=== PATIENT | female | born 1995 | race Caucasian/White ===

== ENCOUNTER 2016-09-07 12:18 | Emergency (ER) | payer SELFPAY ==
--- NOTE | 2016-09-07 12:26 | ER Document Report ---
ED Medical Screen (RME) - General Stated Complaint: POSSIBLE UTI Notes: Frequency urgency 24 hours. I greeted and performed a rapid initial assessment of this patient. Comprehensive ED assessment and evaluation of the patient, analysis of test results and completion of the medical decision making process will be conducted by additional ED providers. TRAVEL OUTSIDE OF THE [place] IN LAST 30 DAYS: No - Related Data Allergies/Adverse Reactions: No Known Drug Allergies Allergy (Verified 06/16/16 15:39) Onion Allergy (Uncoded 06/16/16 15:39) Past Medical History Pulmonary Medical History: Reports: Hx Asthma Renal/ Medical History: Reports: Hx Pelvic Inflammatory Disease - Gonnorhea Psychiatric Medical History: Reports: Hx Depression Past Surgical History: Reports: Hx Appendectomy - Immunizations Hx Diphtheria, Pertussis, Tetanus Vaccination: Yes
[2016-09-07 13:07] LABS: AMORPHOUS SEDIMENT,URINE 1+ /HPF; APPEARANCE,URINE TURBID; BILIRUBIN,URINE SMALL (NEGATIVE); GLUCOSE, URINE NEGATIVE (NEGATIVE); KETONES,URINE TRACE mg/dL (NEGATIVE); LEUKOCYTE ESTERASE,URINE SMALL (NEGATIVE); NITRITE,URINE POSITIVE (NEGATIVE); PROTEIN,URINE 100 mg/dL (NEGATIVE); URINE SPECIFIC GRAVITY 1.028
[2016-09-07] MEDS ORDERED: CEPHALEXIN 500 MG CAPSULE PO ONE (13:25)
--- NOTE | 2016-09-07 13:26 | ER Document Report ---
HPI - HPI Patient complains to provider of: urinary symptoms Onset: Other - 6 days Onset/Duration: Persistent Quality of pain: Burning Pain Level: 5 Context: Patient complains of urinary urgency, frequency and dysuria for the past 6 days. Patient denies any fever, abdominal pain, or back pain. Patient is concerned she has a UTI. Associated Symptoms: Other - Urinary symptoms. denies: Fever Exacerbated by: Denies Relieved by: Denies Similar symptoms previously: Yes Recently seen / treated by doctor: No - ROS ROS below otherwise negative: Yes Systems Reviewed and Negative: Yes All other systems reviewed and negative - CONSTITUTIONAL Constitutional: DENIES: Fever, Chills - CARDIOVASCULAR Cardiovascular: DENIES: Chest pain - GASTROINTESTINAL Gastrointestinal: DENIES: Abdominal Pain, Nausea - URINARY Urinary: REPORTS: Dysuria, Urgency, Frequency - REPRODUCTIVE Reproductive: DENIES: : - MUSCULOSKELETAL Musculoskeletal: DENIES: Back Pain - DERM Skin Color: Normal Skin Problems: None Past Medical History - General Information source: Patient Last Menstrual Period: 08/25/2016 - Social History Smoking Status: Current Every Day Smoker Chew tobacco use (# tins/day): No Frequency of alcohol use: None Drug Abuse: None Family History: Reviewed & Not Pertinent Patient has suicidal ideation: No Patient has homicidal ideation: No Pulmonary Medical History: Reports: Hx Asthma Renal/ Medical History: Reports: Hx Pelvic Inflammatory Disease - Gonnorhea. Denies: Hx Peritoneal Dialysis Psychiatric Medical History: Reports: Hx Depression Past Surgical History: Reports: Hx Appendectomy - Immunizations Hx Diphtheria, Pertussis, Tetanus Vaccination: Yes Vertical Provider Document - CONSTITUTIONAL Agree With Documented VS: Yes Exam Limitations: No Limitations General Appearance: WD/WN, No Apparent Distress - INFECTION CONTROL TRAVEL OUTSIDE OF THE [place] IN LAST 30 DAYS: No - HEENT HEENT: Atraumatic, Normocephalic - NECK Neck: Normal Inspection, Supple - RESPIRATORY Respiratory: Breath Sounds Normal, No Respiratory Distress, Chest Non-Tender O2 Sat by Pulse Oximetry: 95 - CARDIOVASCULAR Cardiovascular: Regular Rate, Regular Rhythm, No Murmur - GI/ABDOMEN Gastrointestinal: Abdomen Soft, Abdomen Non-Tender - BACK Back: Normal Inspection. negative: CVA Tenderness-Right, CVA Tenderness-Left - MUSCULOSKELETAL/EXTREMETIES Musculoskeletal/Extremeties: MAEW - NEURO Level of Consciousness: Awake, Alert, Appropriate Motor/Sensory: No Motor Deficit - DERM Integumentary: Warm, Dry, No Rash Course - Vital Signs Vital signs: Temp Pulse Resp BP Pulse Ox 97.4 F 77 16 115/66 95 09/07/16 12:25 09/07/16 12:25 09/07/16 12:25 09/07/16 12:25 09/07/16 12:25 - Laboratory Laboratory results interpreted by me: 09/07/16 12:34 Urine Protein 100 H Urine Ketones TRACE H Urine Nitrite POSITIVE H Urine Bilirubin SMALL H Urine Urobilinogen 4.0 H Ur Leukocyte Esterase SMALL H 09/07/16 13:25 Labs- Entire Visit 09/07/16 12:34 Urine Color ADRIEL Urine Appearance TURBID Urine pH 7.0 Ur Specific [place] 1.028 Urine Protein 100 H Urine Glucose (UA) NEGATIVE Urine Ketones TRACE H Urine Blood NEGATIVE Urine Nitrite POSITIVE H Urine Bilirubin SMALL H Urine Urobilinogen 4.0 H Ur Leukocyte Esterase SMALL H Urine WBC (Auto) 43 Urine RBC (Auto) 4 Urine Bacteria (Auto) TRACE Squamous Epi Cells Auto 12 Amorphous Sediment Auto 1+ Urine Mucus (Auto) FEW Urine Ascorbic Acid NEGATIVE Discharge - Discharge Clinical Impression: UTI (urinary tract infection) Qualifiers: Urinary tract infection type: site unspecified Hematuria presence: without hematuria Qualified Code(s): N39.0 - Urinary tract infection, site not specified Condition: Stable Disposition: HOME, SELF-CARE Instructions: Urinary Tract Infection ([facility]), Urinary Anesthetic Agent ([facility]), Cephalexin ([facility]) Additional Instructions: Return immediately for any new or worsening symptoms Followup with your primary care provider, call tomorrow to make a followup appointment Prescriptions: Cephalexin Monohydrate [Keflex 500 mg Capsule] 500 mg PO Q6H 5 Days Phenazopyridine HCl [Pyridium 200 mg Tablet] 200 mg PO TID #15 tablet Forms: Return to Work Referrals: [facility] [Provider Group] - Follow up as needed
[2016-09-07 13:47] VITALS: BP 99/65
== END 2016-09-07 13:34 | disposition home or self-care (01) ==
LOC: ER 12:18
DX: N39.0 Urinary tract infection, site not specified (principal); R39.15 Urgency of urination; R35.0 Frequency of micturition; R30.0 Dysuria; F17.200 Nicotine dependence, unspecified, uncomplicated; J45.909 Unspecified asthma, uncomplicated; Z87.42 Personal history of other diseases of the female genital tract
CPT/HCPCS: 81001; 87086; 87186; 99283

== ENCOUNTER 2016-10-16 11:03 | Emergency (ER) | payer SELFPAY ==
--- NOTE | 2016-10-16 11:08 | ER Document Report ---
ED Medical Screen (RME) - General Stated Complaint: URINARY PROBLEM Notes: patient c/o urgency, odor, pyuria, frequency for 4 days. LMP: 09/14/16 Sexually active, uses condoms denies pelvic pain admits to vaginal discharge that is white and clumpy, with fishy odor I have greeted and performed a rapid initial assessment of this patient. A comprehensive ED assessment and evaluation of the patient, analysis of test results and completion of the medical decision making process will be conducted by additional ED providers. TRAVEL OUTSIDE OF THE [place] IN LAST 30 DAYS: No - Related Data Allergies/Adverse Reactions: No Known Drug Allergies Allergy (Verified 10/16/16 11:06) Onion Allergy (Uncoded 10/16/16 11:06) Past Medical History Pulmonary Medical History: Reports: Hx Asthma Renal/ Medical History: Reports: Hx Pelvic Inflammatory Disease - Gonnorhea. Denies: Hx Peritoneal Dialysis Psychiatric Medical History: Reports: Hx Depression Past Surgical History: Reports: Hx Appendectomy - Immunizations Hx Diphtheria, Pertussis, Tetanus Vaccination: Yes
[2016-10-16 12:12] LABS: APPEARANCE,URINE SLIGHTLY-CLOUDY; BILIRUBIN,URINE NEGATIVE (NEGATIVE); GLUCOSE, URINE NEGATIVE (NEGATIVE); KETONES,URINE NEGATIVE (NEGATIVE); LEUKOCYTE ESTERASE,URINE TRACE (NEGATIVE); NITRITE,URINE POSITIVE (NEGATIVE); PROTEIN,URINE NEGATIVE (NEGATIVE); URINE SPECIFIC GRAVITY 1.031
--- NOTE | 2016-10-16 12:30 | ER Document Report ---
ED GI/ - General Mode of Arrival: Ambulatory Information source: Patient TRAVEL OUTSIDE OF THE [place] IN LAST 30 DAYS: No - HPI Patient complains to provider of: Dysuria, Vaginal discharge, Other - Fishy vaginal odor Onset: Other - 4 days ago Location: Other - see above Associated symptoms: Other - see above - General Chief Complaint: Urinary Frequency Stated Complaint: URINARY PROBLEM Notes: 21 year old female with history of recurrent UTIs presents to the ED complaining of dysuria, urgency, and burning with urination that started 4 days ago. Patient is also complaining of a white vaginal discharge and a foul fishy vaginal odor. Patient reports that she usually get a yeast infection concurrently with UTI infections. Patient denies abdominal cramping or vaginal bleeding. Patient denies being on any medications. Patient additionally requests a work note. (XUAN VELARDE) - Related Data Allergies/Adverse Reactions: No Known Drug Allergies Allergy (Verified 10/16/16 11:06) Onion Allergy (Uncoded 10/16/16 11:06) Past Medical History - General Information source: Patient - Social History Smoking Status: Current Every Day Smoker Cigarette use (# per day): Yes - 1 cigarette per day Chew tobacco use (# tins/day): No Frequency of alcohol use: Occasional Drug Abuse: None Family History: Reviewed & Not Pertinent Patient has suicidal ideation: No Patient has homicidal ideation: No Pulmonary Medical History: Reports: Hx Asthma Renal/ Medical History: Reports: Hx Pelvic Inflammatory Disease - Gonnorhea. Denies: Hx Peritoneal Dialysis Psychiatric Medical History: Reports: Hx Depression Past Surgical History: Reports: Hx Appendectomy - Immunizations Hx Diphtheria, Pertussis, Tetanus Vaccination: Yes Review of Systems - Review of Systems Constitutional: No symptoms reported EENT: No symptoms reported Cardiovascular: No symptoms reported Respiratory: No symptoms reported Gastrointestinal: No symptoms reported. denies: Abdominal pain Genitourinary: See HPI, Burning, Dysuria, Urgency Female Genitourinary: See HPI, Vaginal discharge - white, Vaginal odor - "fishy ". denies: Vaginal bleeding Musculoskeletal: No symptoms reported Skin: No symptoms reported Hematologic/Lymphatic: No symptoms reported Neurological/Psychological: No symptoms reported -: Yes All other systems reviewed and negative Physical Exam - General General appearance: Alert In distress: None - HEENT Head: Normocephalic, Atraumatic Eyes: Normal Extraocular movements intact: Yes Pupils: PERRL - Respiratory Respiratory status: No respiratory distress Breath sounds: Normal - Cardiovascular Rhythm: Regular Heart sounds: Normal auscultation - Abdominal Inspection: Normal - Back Back: Normal - Extremities General upper extremity: Normal inspection, Normal ROM General lower extremity: Normal inspection, Normal ROM - Neurological Neuro grossly intact: Yes - Psychological Associated symptoms: Normal affect, Normal mood - Skin Skin Temperature: Warm Skin Moisture: Dry Skin Color: Normal - Vital signs Vitals: Temp Pulse Resp BP Pulse Ox 98.2 F 57 L 12 87/52 L 98 10/16/16 11:10 10/16/16 11:10 10/16/16 11:10 10/16/16 11:10 10/16/16 11:10 Discharge - Discharge Clinical Impression: Vaginal discharge UTI (urinary tract infection) Qualifiers: Urinary tract infection type: acute cystitis Hematuria presence: without hematuria Qualified Code(s): N30.00 - Acute cystitis without hematuria Additional Instructions: TAKE THE MEDICATION PRESCRIBED. DRINK PLENTY OF FLUIDS. A URINE TEST FOR GC AND CHLAMYDIA WAS DONE--IT WILL TAKE SEVERAL HOURS FOR THE RESULTS. YOU WILL BE CALLED IF THERE IS ANY ABNORMALITY. FOLLOW UP WITH YOUR DOCTOR IF NOT IMPROVING. Prescriptions: Clindamycin HCl 150 mg PO QID #28 capsule Forms: Return to Work Scribe Attestation: 10/16/16 12:41 I personally performed the services described in the documentation, reviewed and edited the documentation which was dictated to the scribe in my presence, and it accurately records my words and actions. (VAN RICKS) Scribe Documentation - Scribe Written by Xavi:: Xavi Rico, 10/16/2016 1245 acting as scribe for :: Pastor
[2016-10-16 13:37] VITALS: BP 124/68
[2016-10-16 14:23] LABS: CHLAM PCR NOT DETECTED (NOT DETECT)
== END 2016-10-16 13:05 | disposition home or self-care (01) ==
LOC: ER 11:03
DX: N30.00 Acute cystitis without hematuria (principal); N89.8 Other specified noninflammatory disorders of vagina; R35.0 Frequency of micturition; R39.15 Urgency of urination; R30.0 Dysuria; J45.909 Unspecified asthma, uncomplicated; F17.210 Nicotine dependence, cigarettes, uncomplicated; Z87.42 Personal history of other diseases of the female genital tract; Z91.018 Allergy to other foods
CPT/HCPCS: 81001; 81025; 87086; 87088; 87186; 87491; 87591; 99283

== ENCOUNTER 2016-12-01 16:09 | Emergency (ER) | payer MEDICAID ==
[2016-12-01 17:18] VITALS: BP 111/48
== END 2016-12-01 18:30 | disposition left against medical advice (07) ==
LOC: ER 16:09
DX: Z53.21 Procedure and treatment not carried out due to patient leaving prior to being seen by health care provider (principal)

== ENCOUNTER 2016-12-04 02:07 | Emergency (ER) | payer MEDICAID ==
[2016-12-04] MEDS ORDERED: METOCLOPRAMIDE HCL INJ/PF 10 MG/2 ML SDV IV ONE (03:01)
[2016-12-04] MEDS ORDERED: NORMAL SALINE 1000 ML 1,000 ML IV ONE (03:02)
--- NOTE | 2016-12-04 03:22 | ER Document Report ---
ED General - General Chief Complaint: Nausea/Vomiting Stated Complaint: VOMITING Notes: Patient is a 21-year-old female presents with complaints of vomiting. She is partially 5 weeks . She was seen at [facility] one week ago. She has some bleeding that time had an ultrasound which showed a IUP. She says the last few days she started vomiting. No associated abdominal pain. Some diarrhea. No blood or stool. No blood or emesis. No further vaginal bleeding. No discharge. No dysuria. No fevers. No other complaints at this time. TRAVEL OUTSIDE OF THE [place] IN LAST 30 DAYS: No - Related Data Allergies/Adverse Reactions: No Known Drug Allergies Allergy (Verified 10/16/16 11:06) Onion Allergy (Uncoded 10/16/16 11:06) Past Medical History - Social History Smoking Status: Never Smoker Frequency of alcohol use: None Drug Abuse: None Family History: Reviewed & Not Pertinent Patient has suicidal ideation: No Patient has homicidal ideation: No Pulmonary Medical History: Reports: Hx Asthma Renal/ Medical History: Reports: Hx Pelvic Inflammatory Disease - Gonnorhea. Denies: Hx Peritoneal Dialysis Psychiatric Medical History: Reports: Hx Depression Past Surgical History: Reports: Hx Appendectomy - Immunizations Hx Diphtheria, Pertussis, Tetanus Vaccination: Yes Review of Systems - Review of Systems Notes: My Normal Review Basic REVIEW OF SYSTEMS: CONSTITUTIONAL : Denies fever, chills, or sweats. Denies recent illness. EENT: Denies eye, ear, throat, or mouth pain or symptoms. Denies nasal or sinus congestion. CARDIOVASCULAR: Denies chest pain. RESPIRATORY: Denies cough, cold, or chest congestion. Denies shortness of breath, difficulty breathing, or wheezing. GASTROINTESTINAL: Denies abdominal pain. Vomiting. Denies constipation. Last BM: GENITOURINARY: Denies difficulty urinating, painful urination, burning, frequency, or blood in urine. FEMALE GENITOURINARY: Denies vaginal bleeding, abnormal or irregular periods. LMP: Currently . MUSCULOSKELETAL: Denies neck or back pain or joint pain or swelling. SKIN: Denies rash or skin lesions. HEMATOLOGIC : Denies easy bruising or bleeding. LYMPHATIC: Denies swollen, enlarged glands. NEUROLOGICAL: Denies altered mental status or loss of consciousness. ALL OTHER SYSTEMS REVIEWED AND NEGATIVE. Physical Exam - Vital signs Vitals: Temp Pulse Resp BP Pulse Ox 98.1 F 75 16 122/65 99 12/04/16 02:12 12/04/16 02:12 12/04/16 02:12 12/04/16 02:12 12/04/16 02:12 - Notes Notes: General Appearance: Well nourished, alert, cooperative, no acute distress, no obvious discomfort. Vitals: reviewed, See vital signs table. Head: no swelling or tenderness to the head Eyes: PERRL, EOMI, Conjuctiva clear Mouth: No decreasd moisture Throat: No tonsillar inflammation, No airway obstruction, No lymphadenopathy Lungs: No wheezing, No rales, No rhonci, No accessory muscle use, good air exchange bilaterally. Heart: Normal rate, Regular rythm, No murmur, no rub Abdomen: Normal BS, soft, No rigidity, No abdominal tenderness, No guarding, no rebound, no abdominal masses, no organomegaly Extremities: strength 5/5 in all extremities, good pulses in all extremities, no swelling or tenderness in the extremities, no edema. Skin: warm, dry, appropriate color, no rash Neuro: speech clear, oriented x 3, normal affect, responds appropriately to questions. Course - Vital Signs Vital signs: Temp Pulse Resp BP Pulse Ox 98.1 F 75 16 122/65 99 12/04/16 02:12 12/04/16 02:12 12/04/16 02:12 12/04/16 02:12 12/04/16 02:12 - Laboratory Result Diagrams: 12/04/16 03:29 Laboratory results interpreted by me: 12/04/16 04:49 Urine Ketones 20 H Urine Ascorbic Acid 40 H - Transfer of Care Notes: 12/04/16 06:22 Patient says her nausea is improved with Phenergan. I did write a prescription for Phenergan. I encourage her to follow closely with her [employer] physician. Encourage return to ER she has recurrent vomiting or feels unwell. Patient has been drinking liquids without any difficulty and no further vomiting. Dictation of this chart was performed using voice recognition software; therefore, there may be some unintended grammatical errors. Discharge - Discharge Clinical Impression: Vomiting Qualifiers: Vomiting type: unspecified Vomiting Intractability: non-intractable Nausea presence: unspecified Qualified Code(s): R11.10 - Vomiting, unspecified Qualifiers: Weeks of gestation: unspecified Qualified Code(s): Z33.1 - state, incidental Condition: Good Disposition: HOME, SELF-CARE Additional Instructions: Please eat a bland diet. Please take vitamins. Please take the nausea medication as prescribed. The nausea medication can make you drowsy so do not drive if you feel drowsy or sleepy after taking the medication. Please return to the ER immediately if you have intractable vomiting, abdominal pain, fevers, or vaginal bleeding. Please follow up with an [employer] physician in 3-4 days. Prescriptions: Promethazine HCl [Phenergan 25 mg Tablet] 1 tab PO Q6H PRN #20 tablet PRN Reason:
[2016-12-04 03:52] LABS: ANION GAP 15 (5-19); BLOOD UREA NITROGEN 13 mg/dL (7-20); CALCIUM 9.9 mg/dL (8.4-10.2); CARBON DIOXIDE 24 mmol/L (22-30); CHLORIDE 103 mmol/L (98-107); CREATININE RESULT 0.63 mg/dL (0.52-1.25); GLUCOSE 87 mg/dL (75-110); POTASSIUM 4.1 mmol/L (3.6-5.0); SODIUM 142.1 mmol/L (137-145)
[2016-12-04 05:21] LABS: APPEARANCE,URINE SLIGHTLY-CLOUDY; BILIRUBIN,URINE NEGATIVE (NEGATIVE); GLUCOSE, URINE NEGATIVE (NEGATIVE); KETONES,URINE 20 mg/dL (NEGATIVE); LEUKOCYTE ESTERASE,URINE NEGATIVE (NEGATIVE); NITRITE,URINE NEGATIVE (NEGATIVE); PROTEIN,URINE NEGATIVE (NEGATIVE); UROBILINOGEN,URINE NEGATIVE mg/dL (<2.0)
[2016-12-04] MEDS ORDERED: PROMETHAZINE HCL 25 MG TABLET PO ONE (05:36)
[2016-12-04 06:26] VITALS: BP 105/57
== END 2016-12-04 06:26 | disposition home or self-care (01) ==
LOC: ER 02:07
DX: R11.2 Nausea with vomiting, unspecified (principal); Z3A.01 Less than 8 weeks gestation of pregnancy
CPT/HCPCS: 99283; 96361; 96374; 36415; 80048; 81001; J2765; J3490; J7030

== ENCOUNTER 2016-12-09 19:17 | Emergency (ER) | payer MEDICAID | END 2016-12-09 20:30 | disposition left against medical advice (07) | LOC: ER 19:17 | DX: Z53.21 Procedure and treatment not carried out due to patient leaving prior to being seen by health care provider (principal) ==

== ENCOUNTER 2017-01-18 06:21 | Emergency (ER) | payer MEDICAID ==
[2017-01-18 07:08] VITALS: BP 121/98
--- NOTE | 2017-01-18 08:23 | ER Document Report ---
HPI - HPI Pain Level: 5 Context: Patient comes to the office c/o sore throat, inflamed tonsils, white exudates, on/off fever x2 days. Pt states that she does have discomfort to swallow(due to pain), but no obstruction. She is still eating/drinking with no problems. 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 She was seen by an urgent care yesterday with a negative rapid strep. She is currently on macrobid for a UTI. Pt does note pain in her left lower jaw as well. She has not noticed any facial swelling. Immunizations utd per pt. Denies any current fever, ear pain , nasal michelle/discharge, cough, sob, dyspnea, cp, palp, abd pain, n/v/d, hematuria, dysuria, vaginal discharge, or rash. - ROS Notes: REVIEW OF SYSTEMS: CONSTITUTIONAL : see hpi EENT: see hpi CARDIOVASCULAR: Denies chest pain. Denies palpitations or racing or irregular heart beat. Denies ankle edema. RESPIRATORY: Denies cough, cold, or chest congestion. Denies shortness of breath, difficulty breathing, or wheezing. GASTROINTESTINAL: Denies abdominal pain or distention. Denies nausea, vomiting , or diarrhea. Denies blood in vomitus, stools, or per rectum. Denies black, tarry stools. Denies constipation. GENITOURINARY: Denies difficulty urinating, painful urination, burning, frequency, blood in urine, or discharge. FEMALE GENITOURINARY: Denies vaginal bleeding, heavy or abnormal periods, irregular periods. Denies vaginal discharge or odor. MUSCULOSKELETAL: Denies back or neck pain or stiffness. Denies joint pain or swelling. SKIN: Denies rash, lesions or sores. HEMATOLOGIC : Denies easy bruising or bleeding. NEUROLOGICAL: Denies confusion or altered mental status. Denies passing out or loss of consciousness. Denies dizziness or lightheadedness. Denies headache. Denies weakness or paralysis or loss of use of either side. Denies problems with gait or speech. Denies sensory loss, numbness, or tingling. Denies seizures. ALL OTHER SYSTEMS REVIEWED AND NEGATIVE. Dictation was performed using [employer] recognition software Systems Reviewed and Negative: Yes All other systems reviewed and negative - REPRODUCTIVE Reproductive: DENIES: : - DERM Skin Color: Normal Past Medical History - Social History Smoking Status: Never Smoker Family History: Reviewed & Not Pertinent Patient has suicidal ideation: No Patient has homicidal ideation: No Pulmonary Medical History: Reports: Hx Asthma Renal/ Medical History: Reports: Hx Pelvic Inflammatory Disease - Gonnorhea. Denies: Hx Peritoneal Dialysis Psychiatric Medical History: Reports: Hx Depression Past Surgical History: Reports: Hx Appendectomy - Immunizations Hx Diphtheria, Pertussis, Tetanus Vaccination: Yes Vertical Provider Document - CONSTITUTIONAL Notes: PHYSICAL EXAMINATION: GENERAL: Well-appearing, well-nourished and in no acute distress. No tri-pod position HEAD: Atraumatic, normocephalic. EYES: Pupils equal round and reactive to light, extraocular movements intact, sclera anicteric, conjunctiva are normal. ENT: EAC clear b/l. TM's intact b/l without erythema, fluid, or perforation. Nares patent and without discharge. Throat: + tonsilar hypertrophy L>R 1+ without palatine shift. Uvula midline. + erythema with exudates b/l. No drooling. No facial/neck swelling. No dental pain or poor dentition noted. NECK: Normal range of motion, supple without lymphadenopathy or induration/ tenderness. LUNGS: Breath sounds clear to auscultation bilaterally and equal. No wheezes rales or rhonchi. HEART: Regular rate and rhythm without murmurs, rubs, gallops. ABDOMEN: Soft, nontender, nondistended abdomen. No guarding, no rebound. No masses appreciated. Normal bowel sounds present. No CVA tenderness bilaterally. No hepatosplenomegaly. Musculoskeletal: FROM to passive/active. Strength 5+/5. Extremities: No cyanosis, clubbing, or edema b/l. Peripheral pulses 2+. Capillary refill less than 3 seconds. NEUROLOGICAL: Cranial nerves grossly intact. Normal speech, normal gait. Normal sensory, motor exams PSYCH: Normal mood, normal affect. SKIN: Warm, Dry, normal turgor, no rashes or lesions noted. - INFECTION CONTROL TRAVEL OUTSIDE OF THE [place] IN LAST 30 DAYS: No - RESPIRATORY O2 Sat by Pulse Oximetry: 98 Course - Re-evaluation Re-evalutation: patient is an afebrile, well-hydrated, 21yo female in no acute distress who presents with tonsilitis, suspect strep based on my H&P. Rapid negative, but I am going to cover her clinically. With her higher sexual behavior, I am going to cover her with 1g of rocephin and send her home with Doxy 100mg PO BID x10 days. I will have her stop the macrobid. Pt in agreement. Recheck in 2-3 days with PCM. 01/18/17 08:25 - Vital Signs Vital signs: Temp Pulse Resp BP Pulse Ox 99.1 F 97 20 121/98 H 98 01/18/17 06:50 01/18/17 06:50 01/18/17 06:50 01/18/17 06:50 01/18/17 06:50 Discharge - Discharge Clinical Impression: Acute bacterial tonsillitis Condition: Stable Disposition: HOME, SELF-CARE Instructions: Sore Throat ([facility]), Tonsillitis ([facility]) Additional Instructions: Maintain adequate fluid intake Take meds as directed tylenol/ibuprofen as needed New toothbrush tomorrow evening over the counter cold medication as needed for symptoms F/u: with your PCM in 2-3 days for a recheck Return to the ED with any fever, worsening pain, chest pain, neck pain, shortness of breath, trouble swallowing/breathing, abdominal pain, n/v/d, or worsening symptoms otherwise. Forms: Elevated Blood Pressure, Return to Work
[2017-01-18] MEDS ORDERED: CEFTRIAXONE INJ 1000 MG VIAL IM ONE (08:28)
[2017-01-18] MEDS ORDERED: NYSTATIN/DEXAMETH/DIPHEN SUSP 120 ML PO ONE (08:32)
[2017-01-18] MEDS ORDERED: LIDOCAINE 1% INJ-PF (10 MG/ML) 30 ML SDV INJ ONE (08:43)
== END 2017-01-18 08:53 | disposition home or self-care (01) ==
LOC: ER 06:21
DX: J03.80 Acute tonsillitis due to other specified organisms (principal); B96.89 Other specified bacterial agents as the cause of diseases classified elsewhere; N39.0 Urinary tract infection, site not specified; R68.84 Jaw pain; J45.909 Unspecified asthma, uncomplicated
CPT/HCPCS: 99283; 96372; 87070; 87880; 87077; J3490 ×2; J0696

== ENCOUNTER 2017-02-15 09:53 | Emergency (ER) | payer MEDICAID ==
[2017-02-15 09:58] VITALS: BP 116/64
--- NOTE | 2017-02-15 10:13 | ER Document Report ---
ED General - General Chief Complaint: Vaginal Itching Stated Complaint: VAGINAL DISCHARGE Time Seen by Provider: 02/15/17 10:04 Mode of Arrival: Ambulatory Information source: Patient Notes: 21-year-old female history of bacterial vaginosis yeast infections presents with complaints of foul-smelling discharge consistent with her previous BV, patient denies any fevers or chills nausea vomiting or diarrhea. Patient denies any concerns for sexually transmitted diseases. Patient is sexually active. TRAVEL OUTSIDE OF THE [place] IN LAST 30 DAYS: No - HPI Onset: Last week Onset/Duration: Persistent Quality of pain: No pain Severity: Mild Pain Level: Denies Associated symptoms: Other Exacerbated by: Denies Relieved by: Denies Similar symptoms previously: Yes Recently seen / treated by doctor: Yes - Related Data Allergies/Adverse Reactions: No Known Drug Allergies Allergy (Verified 10/16/16 11:06) Onion Allergy (Uncoded 10/16/16 11:06) Past Medical History - Social History Smoking Status: Current Every Day Smoker Cigarette use (# per day): Yes Chew tobacco use (# tins/day): No Smoking Education Provided: No Family History: Reviewed & Not Pertinent Patient has suicidal ideation: No Patient has homicidal ideation: No Pulmonary Medical History: Reports: Hx Asthma Renal/ Medical History: Reports: Hx Pelvic Inflammatory Disease - Gonnorhea. Denies: Hx Peritoneal Dialysis Psychiatric Medical History: Reports: Hx Depression Past Surgical History: Reports: Hx Appendectomy - Immunizations Hx Diphtheria, Pertussis, Tetanus Vaccination: Yes Review of Systems - Review of Systems Notes: REVIEW OF SYSTEMS: CONSTITUTIONAL : Denies fever, chills, or sweats. Denies recent illness. EENT: Denies eye, ear, throat, or mouth pain or symptoms. Denies nasal or sinus congestion or discharge. Denies throat, tongue, or mouth swelling or difficulty swallowing. CARDIOVASCULAR: Denies chest pain. Denies palpitations or racing or irregular heart beat. Denies ankle edema. RESPIRATORY: Denies cough, cold, or chest congestion. Denies shortness of breath, difficulty breathing, or wheezing. GASTROINTESTINAL: Denies abdominal pain or distention. Denies nausea, vomiting , or diarrhea. Denies blood in vomitus, stools, or per rectum. Denies black, tarry stools. Denies constipation. GENITOURINARY: Denies difficulty urinating, painful urination, burning, frequency, blood in urine, or discharge. FEMALE GENITOURINARY: Admits to itchy vaginal discharge MUSCULOSKELETAL: Denies back or neck pain or stiffness. Denies joint pain or swelling. SKIN: Denies rash, lesions or sores. HEMATOLOGIC : Denies easy bruising or bleeding. LYMPHATIC: Denies swollen, enlarged glands. NEUROLOGICAL: Denies confusion or altered mental status. Denies passing out or loss of consciousness. Denies dizziness or lightheadedness. Denies headache. Denies weakness or paralysis or loss of use of either side. Denies problems with gait or speech. Denies sensory loss, numbness, or tingling. Denies seizures. PSYCHIATRIC: Denies anxiety or stress. Denies depression, suicidal ideation, or homicidal ideation. ALL OTHER SYSTEMS REVIEWED AND NEGATIVE. PHYSICAL EXAMINATION: GENERAL: Well-appearing, well-nourished and in no acute distress. HEAD: Atraumatic, normocephalic. EYES: Pupils equal round and reactive to light, extraocular movements intact, conjunctiva are normal. ENT: Nares patent, oropharynx clear without exudates. Moist mucous membranes. NECK: Normal range of motion, supple without lymphadenopathy LUNGS: Breath sounds clear to auscultation bilaterally and equal. No wheezes rales or rhonchi. HEART: Regular rate and rhythm without murmurs ABDOMEN: Soft, nontender, nondistended abdomen. No guarding, no rebound. No masses appreciated. Female : deferred Musculoskeletal: Normal range of motion, no pitting or edema. No cyanosis. NEUROLOGICAL: Cranial nerves grossly intact. Normal speech, normal gait. Normal sensory, motor exams PSYCH: Normal mood, normal affect. SKIN: Warm, Dry, normal turgor, no rashes or lesions noted. Dictation was performed using [employer] voice recognition software Physical Exam - Vital signs Vitals: Temp Pulse Resp BP Pulse Ox 97.9 F 82 20 116/64 99 02/15/17 09:55 02/15/17 09:55 02/15/17 09:55 02/15/17 09:55 02/15/17 09:55 Course - Re-evaluation Re-evalutation: 02/15/17 10:10 Patient was offered pelvic examination and room, she wishes to be treated for bacterial vaginosis and yeast infection symptomatically. I did insist that patient be tested for at least gonorrhea and chlamydia and she will give us a urine sample After performing a Medical Screening Examination, I estimate there is LOW risk for ACUTE APPENDICITIS, BOWEL OBSTRUCTION, ACUTE CHOLECYSTITIS, PERFORATED DIVERTICULITIS, INCARCERATED HERNIA, PANCREATITIS, PELVIC INFLAMMATORY DISEASE, PERFORATED ULCER, ECTOPIC , or TUBO-OVARIAN ABSCESS, thus I consider the discharge disposition reasonable. Also, there is no evidence or peritonitis , sepsis, or toxicity. I have reevaluated this patient multiple times and no significant life threatening changes are noted. The patient and I have discussed the diagnosis and risks, and we agree with discharging home with close follow-up with the understanding that symptoms and presentations can change. We also discussed returning to the Emergency Department immediately if new or worsening symptoms occur. We have discussed the symptoms which are most concerning (e.g., bloody stool, fever, changing or worsening pain, vomiting) that necessitate immediate return. - Vital Signs Vital signs: Temp Pulse Resp BP Pulse Ox 97.9 F 82 20 116/64 99 02/15/17 09:55 02/15/17 09:55 02/15/17 09:55 02/15/17 09:55 02/15/17 09:55 Discharge - Discharge Clinical Impression: Bacterial vaginosis, Yeast infection Condition: Stable Disposition: HOME, SELF-CARE Instructions: Vaginosis, Bacterial ([facility]), Vaginal Yeast Infection ([facility]) Prescriptions: Fluconazole [Diflucan] 150 mg PO ONCE PRN #1 tablet PRN Reason: Metronidazole [Flagyl 500 mg Tablet] 500 mg PO BID #14 tablet Referrals: [facility] [Provider Group] - Follow up tomorrow
[2017-02-15 12:03] LABS: CHLAM PCR NOT DETECTED (NOT DETECT)
== END 2017-02-15 10:18 | disposition home or self-care (01) ==
LOC: ER 09:53
DX: N76.0 Acute vaginitis (principal); B96.89 Other specified bacterial agents as the cause of diseases classified elsewhere; B37.9 Candidiasis, unspecified; J45.909 Unspecified asthma, uncomplicated; F17.210 Nicotine dependence, cigarettes, uncomplicated; Z91.018 Allergy to other foods
CPT/HCPCS: 81025; 87491; 87591; 99283

== ENCOUNTER 2017-06-27 16:43 | Emergency (ER) | payer MEDICAID ==
--- NOTE | 2017-06-27 17:01 | ER Document Report ---
ED Medical Screen (RME) - General Chief Complaint: Abdominal Pain Stated Complaint: ABDOMINAL PAIN Time Seen by Provider: 06/27/17 16:56 Mode of Arrival: Ambulatory Information source: Patient TRAVEL OUTSIDE OF THE [place] IN LAST 30 DAYS: No - HPI Patient complains to provider of: possible ectopic preg Onset: This morning - pt is who is approx 7 weeks along. [facility] [place] [facility] lower abd pain (no vaginal bleeding) - she was referred to the ER after U/S done there showed possible ectopic preg. - Related Data Allergies/Adverse Reactions: No Known Drug Allergies Allergy (Verified 06/27/17 16:48) Onion Allergy (Uncoded 06/27/17 16:48) Past Medical History Pulmonary Medical History: Reports: Hx Asthma Renal/ Medical History: Reports: Hx Pelvic Inflammatory Disease - Gonnorhea. Denies: Hx Peritoneal Dialysis Psychiatric Medical History: Reports: Hx Depression Past Surgical History: Reports: Hx Appendectomy - Immunizations Hx Diphtheria, Pertussis, Tetanus Vaccination: Yes Physical Exam - Vital signs Vitals: Temp Pulse Resp BP Pulse Ox 99.0 F 84 16 104/49 L 97 06/27/17 16:49 06/27/17 16:49 06/27/17 16:49 06/27/17 16:49 06/27/17 16:49 Course - Vital Signs Vital signs: Temp Pulse Resp BP Pulse Ox 99.0 F 84 16 104/49 L 97 06/27/17 16:49 06/27/17 16:49 06/27/17 16:49 06/27/17 16:49 06/27/17 16:49
[2017-06-27 17:22] LABS: HEMATOCRIT 36.2 % (36.0-47.0); HEMOGLOBIN 12.5 g/dL (12.0-15.5); HGB HCT DIFFERENCE 1.3; MEAN CORPUSCULAR HEMOGLOBIN 30.3 pg (27.0-33.4); MEAN CORPUSCULAR HGB CONC 34.5 g/dL (32.0-36.0); MEAN CORPUSCULAR VOLUME 88 fl (80-97); RED BLOOD COUNT 4.12 10^6/uL (3.72-5.28); WHITE BLOOD COUNT 7.4 10^3/uL (4.0-10.5)
[2017-06-27 17:28] LABS: APPEARANCE,URINE CLEAR; BILIRUBIN,URINE NEGATIVE (NEGATIVE); GLUCOSE, URINE NEGATIVE (NEGATIVE); KETONES,URINE TRACE mg/dL (NEGATIVE); LEUKOCYTE ESTERASE,URINE NEGATIVE (NEGATIVE); NITRITE,URINE POSITIVE (NEGATIVE); PROTEIN,URINE 30 mg/dL (NEGATIVE); URINE SPECIFIC GRAVITY 1.028
[2017-06-27 17:42] LABS: ALANINE AMINOTRANSFERASE 28 U/L (9-52); ALBUMIN 4.3 g/dL (3.5-5.0); ALKALINE PHOSPHATASE 37 U/L (38-126); ANION GAP 13 (5-19); ASPARTATE AMINO TRANSFERASE 18 U/L (14-36); BILIRUBIN,DIRECT 0.1 mg/dL (0.0-0.4); BILIRUBIN,TOTAL 0.5 mg/dL (0.2-1.3); BLOOD UREA NITROGEN 10 mg/dL (7-20); CALCIUM 9.1 mg/dL (8.4-10.2); CARBON DIOXIDE 26 mmol/L (22-30); CHLORIDE 104 mmol/L (98-107); CREATININE RESULT 0.65 mg/dL (0.52-1.25); GLUCOSE 87 mg/dL (75-110); SODIUM 143.3 mmol/L (137-145); TOTAL PROTEIN 6.8 g/dL (6.3-8.2)
--- NOTE | 2017-06-27 18:52 | RADIOLOGY REPORT (SQ) ---
EXAM DESCRIPTION: U/S OB TRANSVAGINAL W/O DOP COMPLETED DATE/TIME: 06/27/2017 6:36 pm REASON FOR STUDY: possible ectopic COMPARISON: None. TECHNIQUE: Transvaginal static and realtime grayscale images acquired of the pelvis. Additional gwendolyn cted spectral and color Doppler images recorded. All images stored on PACs. bHC,176. LIMITATIONS: None. FINDINGS: UTERUS: No masses. No anomalies. GESTATIONAL SAC: Faint hypoechoic structure in the endometrium, possibly an early gestational sac, 5 weeks. YOLK SAC: No. POLE: No. RIGHT ADNEXA: Normal ovary with normal vascular flow. No adnexal free fluid. No adnexal masses. LEFT ADNEXA: Normal ovary with normal vascular flow. No adnexal free fluid. Large cyst with septation and small amount of debris, measuring 4.5 x 5.8 cm. FREE FLUID: Small amount of free fluid. OTHER: No other significant finding. IMPRESSION: POSSIBLE EARLY INTRAUTERINE . QUESTIONABLE TINY GESTATIONAL SAC IN THE UTERUS. LARGE CYSTIC LESION IN THE LEFT OVARY WITH SMALL AMOUNT OF DEBRIS. BHCG LEVEL APPROPRIATE FOR ENDOMETRIAL FINDINGS. CONSIDER F/U BHCG AND/OR ULTRASOUND FOR VERIFICATION AND TO EXCLUDE ECTOPIC . Trimester of : First - 0 to 13 weeks. TECHNICAL DOCUMENTATION: JOB ID: [id number] [employer]- All Rights Reserved
[2017-06-27] MEDS ORDERED: CEPHALEXIN 500 MG CAPSULE PO ONE (19:26)
--- NOTE | 2017-06-27 19:30 | ER Document Report ---
ED General <VAN RICKS - Last Filed: 06/27/17 19:30> - General Mode of Arrival: Ambulatory TRAVEL OUTSIDE OF THE [place] IN LAST 30 DAYS: No <NATE ENRIQUEZ - Last Filed: 06/27/17 19:43> - General Chief Complaint: Abdominal Pain Stated Complaint: ABDOMINAL PAIN Time Seen by Provider: 06/27/17 16:56 Notes: This 22-year-old female patient comes emergency room for evaluation of left lower quadrant abdominal pain and positive test. She reports having a miscarriage in early May of this year. She found out 4 days ago on an office visit [facility] that she was and started treatment for a urinary tract infection. She was given a black and yellow pill to take which she started 3 days ago and states she is not any better. She has not taken any today. She was seen at [facility] earlier today where an ultrasound was done and she was told she may have an ectopic . She was told to go to the emergency room, she elected to wait until she came home to [place]. Lab work and ultrasound done at triage shows a urinary tract infection, and hCG level of 1176, and an ultrasound showing a large cystic lesion on the left ovary and a questionable tiny gestational sac in the uterus. (VAN RICKS) - Related Data Allergies/Adverse Reactions: No Known Drug Allergies Allergy (Verified 06/27/17 16:48) Onion Allergy (Uncoded 06/27/17 16:48) Past Medical History - General Information source: Patient - Social History Smoking Status: Never Smoker Chew tobacco use (# tins/day): No Frequency of alcohol use: None Drug Abuse: None Family History: Reviewed & Not Pertinent Patient has suicidal ideation: No Patient has homicidal ideation: No Pulmonary Medical History: Reports: Hx Asthma Renal/ Medical History: Reports: Hx Pelvic Inflammatory Disease - Gonnorhea. Denies: Hx Peritoneal Dialysis Psychiatric Medical History: Reports: Hx Depression Past Surgical History: Reports: Hx Appendectomy - Immunizations Hx Diphtheria, Pertussis, Tetanus Vaccination: Yes <NATE ENRIQUEZ - Last Filed: 06/27/17 19:43> Review of Systems - Review of Systems Constitutional: No symptoms reported EENT: No symptoms reported Cardiovascular: No symptoms reported Respiratory: No symptoms reported Gastrointestinal: See HPI, Abdominal pain Genitourinary: See HPI Female Genitourinary: See HPI Musculoskeletal: No symptoms reported Skin: No symptoms reported Hematologic/Lymphatic: No symptoms reported Neurological/Psychological: No symptoms reported -: Yes All other systems reviewed and negative <NATE ENRIQUEZ - Last Filed: 06/27/17 19:43> Physical Exam - General General appearance: Appears well, Alert In distress: None - HEENT Head: Normocephalic, Atraumatic Eyes: Normal Pupils: PERRL Mucous membranes: Moist - Respiratory Respiratory status: No respiratory distress - Cardiovascular Rhythm: Regular - Abdominal Inspection: Normal Distension: No distension Bowel sounds: Normal Tenderness: Nontender Organomegaly: No organomegaly - Back Back: Normal - Extremities General upper extremity: Normal inspection, Normal ROM General lower extremity: Normal inspection, Normal ROM - Neurological Neuro grossly intact: Yes Cognition: Normal Orientation: AAOx4 [place] Coma Scale Eye Opening: Spontaneous [place] Coma Scale Verbal: Oriented [place] Coma Scale Motor: Obeys Commands [place] Coma Scale Total: 15 Speech: Normal - Psychological Associated symptoms: Normal affect, Normal mood - Skin Skin Temperature: Warm Skin Moisture: Dry <NATE ENRIQUEZ - Last Filed: 06/27/17 19:43> - Vital signs Vitals: Temp Pulse Resp BP Pulse Ox 99.0 F 84 16 104/49 L 97 06/27/17 16:49 06/27/17 16:49 06/27/17 16:49 06/27/17 16:49 06/27/17 16:49 Course - Laboratory Result Diagrams: 06/27/17 15:10 06/27/17 15:10 <VAN RICKS - Last Filed: 06/27/17 19:30> - Laboratory Result Diagrams: 06/27/17 15:10 06/27/17 15:10 <NATE ENRIQUEZ - Last Filed: 06/27/17 19:43> - Vital Signs Vital signs: Temp Pulse Resp BP Pulse Ox 99.0 F 84 16 104/49 L 97 06/27/17 16:49 06/27/17 16:49 06/27/17 16:49 06/27/17 16:49 06/27/17 16:49 - Laboratory Laboratory results interpreted by me: 06/27/17 06/27/17 15:10 15:10 Alkaline Phosphatase 37 L Beta HCG, Quant 1176.60 H Urine Protein 30 H Urine Ketones TRACE H Urine Nitrite POSITIVE H Urine Urobilinogen 4.0 H Urine Ascorbic Acid 40 H Discharge <VAN RICKS - Last Filed: 06/27/17 19:30> <NATE ENRIQUEZ - Last Filed: 06/27/17 19:43> - Discharge Clinical Impression: Left ovarian cyst, Early stage of Urinary tract infection Qualifiers: Urinary tract infection type: acute cystitis Hematuria presence: without hematuria Qualified Code(s): N30.00 - Acute cystitis without hematuria Condition: Stable Disposition: HOME, SELF-CARE Additional Instructions: Ovarian Cyst Your examination shows the presence of an ovarian cyst. This is a ball of fluid attached to the ovary. Ovarian cysts in women of child-bearing age are usually innocent. However, the cyst may cause pain when it grows or bursts. An innocent ovarian cyst will usually go away by itself. When the cyst becomes painful, you should rest. Pain medication may be required. Some women find a hot water bottle soothing. The pain usually resolves within one or two days. After menopause, an ovarian cyst may mean a tumor, and requires more aggressive evaluation -- usually surgery is recommended to remove or biopsy the cyst. A very large cyst requires evaluation at any age. Most cysts (even the innocent ones) require follow-up examination. Call the doctor or return at any time if the pain increases significantly, if you become faint, or if you experience vaginal bleeding. Urinary Tract Infection Your evaluation indicates that you have a urinary tract infection. This is due to germs growing in the bladder. This is a common problem. This infection usually responds quickly to antibiotics. Your antibiotic should be taken exactly as prescribed. Drink plenty of fluids -- three to four quarts a day. Occasionally, a bladder anesthetic will be prescribed to help stop the feeling of urgency until the antibiotic has a chance to clear the infection. This may cause your urine to be dark orange. Certain urine infections require a culture. If the doctor obtained a culture, the results will be back in two days. You should call to see if a change in treatment is needed. A repeat urinalysis after you finish treatment is often recommended. The physician will let you know if further testing is required. Call the doctor if you develop fever, chills, flank pain, inability to urinate, or blood in the urine. //////////////////////////////////////////////////////////////////////////////// ////////////////////////////////////////////////////////// The ultrasound shows a possible very early , this would be consistent with the hormone level. There is a cyst on the left ovary which is probably the source of your left lower abdomen discomfort. There is evidence of urinary tract infection. Take the antibiotics as prescribed for your urine. Drink lots of fluids to help flush out the bacteria in your bladder. Follow-up with [facility] on Thursday to repeat your hormone level and reevaluate your ovarian cyst. RETURN TO THE EMERGENCY ROOM IF ANY NEW OR WORSENING SYMPTOMS. Prescriptions: Cephalexin Monohydrate [Keflex 500 mg Capsule] 500 mg PO TID #15 capsule Referrals: [facility] [Provider Group] - 06/29/17 Scribe Attestation: 06/27/17 19:33 I personally performed the services described in the documentation, reviewed and edited the documentation which was dictated to the scribe in my presence, and it accurately records my words and actions. (VAN RICKS) Scribe Documentation - Scribe Written by Xavi:: Xavi Samuels, 06/27/2017 19:39 acting as scribe for :: Pastor <NATE ENRIQUEZ - Last Filed: 06/27/17 19:43>
[2017-06-27 19:45] VITALS: BP 100/40
== END 2017-06-27 19:53 | disposition home or self-care (01) ==
LOC: ER 16:43
DX: O34.81 Maternal care for other abnormalities of pelvic organs, first trimester (principal); N30.00 Acute cystitis without hematuria; R10.32 Left lower quadrant pain
CPT/HCPCS: 36415; 76817; 80053; 81001; 84702; 85027; 87086; 99284

== ENCOUNTER 2018-03-06 20:17 | Emergency (ER) | payer MEDICAID ==
[2018-03-06 20:22] VITALS: BP 119/61
[2018-03-06] MEDS ORDERED: DEXAMETHASONE SOD PHOSPHATE INJ 4 MG/1 ML VIAL IM ONE (20:39)
[2018-03-06] MEDS ORDERED: FAMOTIDINE 20 MG TABLET PO ONE (20:41)
--- NOTE | 2018-03-06 20:43 | ER Document Report ---
HPI - HPI Patient complains to provider of: hives Onset: Other - 2 days ago Quality of pain: Other - itchy Pain Level: 2 Context: Patient presents emergency department with reports of rash. Patient reports started 2 days ago. Denies allergies. Reports that started on her back and legs and now is all over. Patient is not short of breath no fever vomiting diarrhea. Reports she is allergic to onions but denies allergies to anything else. Reports she went to see her primary care provider who told her to take Benadryl. She reports that earlier today she felt like she had a hard time breathing with chest pain that she feels fine now just itchy. Patient recently moved into a new house a few weeks ago. She reports the symptoms started slightly 2 weeks ago she thought she had a ringworm infection placed antifungal on her arm. She went swimming and when she got out of the pool she was covered in a rash. When she went home took a shower she stopped itching. Associated Symptoms: None Exacerbated by: Denies Relieved by: Denies Similar symptoms previously: No Recently seen / treated by doctor: No - REPRODUCTIVE Reproductive: DENIES: : Past Medical History - General Information source: Patient Last Menstrual Period: 3 weeks ago - Social History Smoking Status: Current Every Day Smoker Cigarette use (# per day): Yes Frequency of alcohol use: Occasional Drug Abuse: None Lives with: Family Family History: Reviewed & Not Pertinent Patient has suicidal ideation: No Patient has homicidal ideation: No Pulmonary Medical History: Reports: Hx Asthma Renal/ Medical History: Reports: Hx Pelvic Inflammatory Disease - Gonnorhea. Denies: Hx Peritoneal Dialysis Psychiatric Medical History: Reports: Hx Depression Past Surgical History: Reports: Hx Appendectomy - Immunizations Hx Diphtheria, Pertussis, Tetanus Vaccination: Yes Vertical Provider Document - CONSTITUTIONAL Agree With Documented VS: Yes Exam Limitations: No Limitations General Appearance: WD/WN, No Apparent Distress - nontoxic looking - INFECTION CONTROL TRAVEL OUTSIDE OF THE [place] IN LAST 30 DAYS: No - HEENT HEENT: Atraumatic, Normocephalic. negative: Pharyngeal Exudate, Pharyngeal Erythema - good airway - NECK Neck: Normal Inspection, Supple - RESPIRATORY Respiratory: Breath Sounds Normal, No Respiratory Distress. negative: Chest Non -Tender, Rhonchi, Wheezing - CARDIOVASCULAR Cardiovascular: Regular Rate, Regular Rhythm - GI/ABDOMEN Gastrointestinal: Abdomen Soft, Abdomen Non-Tender - BACK Back: Normal Inspection - MUSCULOSKELETAL/EXTREMETIES Musculoskeletal/Extremeties: DARIEL WEST - NEURO Level of Consciousness: Awake, Alert, Appropriate Motor/Sensory: No Motor Deficit - DERM Integumentary: Rash - hives to legs, abd back. some erythema to face, Course - Re-evaluation Re-evalutation: 03/06/18 21:10 Patient with good airway no trouble breathing respiratory rate even and unlabored. Will treat with Decadron Vistaril Pepcid. Patient was instructed on ways to control itching. Patient was also instructed on the importance of follow-up with the primary care provider to evaluate allergies. Patient was called by RN to instruct her not to use the antifungal medicine because she might be allergic to that. - Vital Signs Vital signs: Temp Pulse Resp BP Pulse Ox 97.8 F 91 18 119/61 97 03/06/18 20:21 03/06/18 20:21 03/06/18 20:21 03/06/18 20:21 03/06/18 20:21 Discharge - Discharge Clinical Impression: Hives Condition: Stable Disposition: HOME, SELF-CARE Instructions: Acute Allergic Reaction ([facility]), Steroid Medication Injection Additional Instructions: *You have been evaluated for an allergic reaction *take medications as prescribed *Monitor your symptoms *Try not to scratch *Follow-up with a primary care provider for allergy testing *Return to ED for worsening condition change, needs. trouble breathing Prescriptions: Famotidine [Pepcid 20 mg Tablet] 20 mg PO DAILY #12 tablet
[2018-03-06] MEDS ORDERED: HYDROXYZINE PAMOATE 25 MG CAPSULE (4 CAP/ER DISP) PO SCH (22:00)
== END 2018-03-06 21:04 | disposition home or self-care (01) ==
LOC: ER 20:17
DX: L50.9 Urticaria, unspecified (principal); F17.210 Nicotine dependence, cigarettes, uncomplicated; J45.909 Unspecified asthma, uncomplicated; Z91.018 Allergy to other foods
CPT/HCPCS: 99282; 96372; J3490 ×2; J1100

== ENCOUNTER 2018-03-13 20:35 | Emergency (ER) | payer MEDICAID ==
[2018-03-13] MEDS ORDERED: NORMAL SALINE 1000 ML 1,000 ML IV ONE ×2 (20:48→23:22)
[2018-03-13] MEDS ORDERED: LORAZEPAM INJ 2 MG/1 ML VIAL IV ONE ×2 (20:49→20:54)
--- NOTE | 2018-03-13 20:51 | ER Document Report ---
ED General - General Mode of Arrival: Medic Information source: Patient, Emergency Med Personnel TRAVEL OUTSIDE OF THE [place] IN LAST 30 DAYS: No <JENNIFER ROMERO - Last Filed: 03/13/18 20:45> <ABHI FERREIRA - Last Filed: 03/14/18 04:03> - General Stated Complaint: POSSIBLE OVERDOSE Time Seen by Provider: 03/13/18 20:38 Notes: Patient is a 22 year old female that presents to the emergency department today after ingesting x6 30mg adderall tablets starting at about 0330 this morning ( 18 hours). Patient states that she "does not remember even taking them" as she was quite intoxicated when she began ingesting them. Patient states she was not trying to harm herself, she took them based off of a recommendation from a friend. Patient also took x2 25mg benadryl tablets prior to arrival. Patient complains of a heart racing sensation and appears anxious. (JENNIFER ROMERO) - Related Data Allergies/Adverse Reactions: No Known Drug Allergies Allergy (Verified 03/06/18 20:18) Onion Allergy (Uncoded 03/06/18 20:18) Past Medical History - General Information source: Patient - Social History Smoking Status: Current Every Day Smoker Cigarette use (# per day): Yes Frequency of alcohol use: Social Family History: Reviewed & Not Pertinent Pulmonary Medical History: Reports: Hx Asthma Renal/ Medical History: Reports: Hx Pelvic Inflammatory Disease - Gonnorhea. Denies: Hx Peritoneal Dialysis Psychiatric Medical History: Reports: Hx Depression Past Surgical History: Reports: Hx Appendectomy - Immunizations Hx Diphtheria, Pertussis, Tetanus Vaccination: Yes <JENNIFER ROMERO - Last Filed: 03/13/18 20:45> Review of Systems - Review of Systems Constitutional: See HPI, Other - Ingestion of x6 30mg adderall during an 18 hour stretch, also took benadryl EENT: No symptoms reported Cardiovascular: No symptoms reported Respiratory: No symptoms reported Gastrointestinal: No symptoms reported Genitourinary: No symptoms reported Female Genitourinary: No symptoms reported Musculoskeletal: No symptoms reported Skin: No symptoms reported Hematologic/Lymphatic: No symptoms reported Neurological/Psychological: denies: Suicidal ideation -: Yes All other systems reviewed and negative <JENNIFER ROMERO - Last Filed: 03/13/18 20:45> Physical Exam <JENNIFER ROMERO - Last Filed: 03/13/18 20:45> <ABHI FERREIRA - Last Filed: 03/14/18 04:03> - Vital signs Vitals: Resp Pulse Ox 12 100 03/13/18 20:41 03/13/18 20:41 - Notes Notes: Physical Exam: General: Alert, appears well. HEENT: Normocephalic. Atraumatic. PERRL. Extraocular movements intact. Oropharynx clear. Dry mucous membranes. Neck: Supple. Non-tender. Respiratory: No respiratory distress. Clear and equal breath sounds bilaterally. Cardiovascular: Tachycardic, regular rhythm. Abdominal: Normal Inspection. Non-tender. No distension. Normal Bowel Sounds. Back: Non-tender. No deformity or step off. Extremities: Moves all four extremities. Upper extremities: Normal inspection. Normal ROM. Lower extremities: Normal inspection. No edema. Normal ROM. Neurological: Normal cognition. AAOx4. Normal speech. Psychological: Anxious Skin: Warm. Dry. Normal color. (JENNIFER ROMERO) Course <JENNIFER ROMERO - Last Filed: 03/13/18 20:45> - Laboratory Result Diagrams: 03/13/18 20:57 03/13/18 20:57 <ABHI FERREIRA - Last Filed: 03/14/18 04:03> - Re-evaluation Re-evalutation: 03/13/18 23:00 Patient improving, HR down to 110's. Patient is a 22-year-old female who comes in after taking 6 Adderall and Benadryl today. Appears well. Patient's tachycardia is resolving with fluid she is taking p.o. Patient appears well. Would like to go home. Advised to not take Adderall in the future unless as prescribed. Understands agrees with plan. Stable for discharge. (ABHI FERREIRA) - Vital Signs Vital signs: Temp Pulse Resp BP Pulse Ox 98.2 F 18 114/54 L 98 03/13/18 21:10 03/14/18 01:00 03/14/18 01:01 03/14/18 01:00 - Laboratory Laboratory results interpreted by me: 03/13/18 03/13/18 03/13/18 20:57 20:57 22:09 WBC 15.2 H RDW 14.1 H Absolute Neutrophils 11.5 H Anion Gap 21 H AST 46 H Creatine Kinase Total Protein 9.1 H Albumin 5.3 H Urine Protein 100 H Urine Ketones 80 H Ur Leukocyte Esterase TRACE H Salicylates 1.5 L Acetaminophen < 10 L 03/13/18 22:33 WBC RDW Absolute Neutrophils Anion Gap AST Creatine Kinase 611 H Total Protein Albumin Urine Protein Urine Ketones Ur Leukocyte Esterase Salicylates Acetaminophen Critical Care Note - Critical Care Note Total time excluding time spent on procedures (mins): 15 - Evaluation and management of overdose, tachycardia, multiple re-evaluations, counseling of patient <ABHI FERREIRA - Last Filed: 03/14/18 04:03> Discharge <JENNIFER ROMERO - Last Filed: 03/13/18 20:45> <ABHI FERREIRA - Last Filed: 03/14/18 04:03> - Discharge Clinical Impression: Amphetamine use, Dehydration Condition: Stable Disposition: HOME, SELF-CARE Instructions: Instructions for Home Care Following a Drug Overdose ([facility]) Forms: Return to Work Scribe Attestation: 03/14/18 04:03 I personally performed the services described in the documentation, reviewed and edited the documentation which was dictated to the scribe in my presence, and it accurately records my words and actions. (ABHI FERREIRA) Scribe Documentation - Scribe Written by Scribe:: Xavi Haines, [id number] 03/13/2018 acting as scribe for :: Jennifer <JENNIFER ROMERO - Last Filed: 03/13/18 20:45>
[2018-03-13 21:09] LABS: ABSOLUTE BASOPHILS # (AUTO) 0.1 10^3/uL (0.0-0.2); ABSOLUTE LYMPHOCYTES (AUTO) 2.7 10^3/uL (0.5-4.7); ABSOLUTE MONOCYTES (AUTO) 0.9 10^3/uL (0.1-1.4); ABSOLUTE NEUT (AUTO) 11.5 10^3/uL (1.7-8.2); BASOPHILS % (AUTO) 0.4 % (0-2); EOSINOPHILS % (AUTO) 0.1 % (0-6); HEMATOCRIT 42.9 % (36.0-47.0); HEMOGLOBIN 14.6 g/dL (12.0-15.5); MEAN CORPUSCULAR VOLUME 88 fl (80-97); MONOCYTES % (AUTO) 5.8 % (3-13); PLATELET COUNT 259 10^3/uL (150-450); RED BLOOD COUNT 4.86 10^6/uL (3.72-5.28); RED CELL DISTRIBUTION WIDTH 14.1 % (11.5-14.0); SEGMENTED NEUTROPHILS % (AUTO) 75.7 % (42-78); TOTAL CELLS COUNTED % (AUTO) 100 %; WHITE BLOOD COUNT 15.2 10^3/uL (4.0-10.5)
[2018-03-13] MEDS ORDERED: ONDANSETRON HCL INJ/PF 4 MG/2 ML SDV IV ONE (21:12)
[2018-03-13 21:18] LABS: ALANINE AMINOTRANSFERASE 34 U/L (9-52); ALBUMIN 5.3 g/dL (3.5-5.0); ALKALINE PHOSPHATASE 54 U/L (38-126); ASPARTATE AMINO TRANSFERASE 46 U/L (14-36); BILIRUBIN,DIRECT 0.2 mg/dL (0.0-0.4); BILIRUBIN,TOTAL 0.5 mg/dL (0.2-1.3); BLOOD UREA NITROGEN 10 mg/dL (7-20); CALCIUM 9.9 mg/dL (8.4-10.2); GLUCOSE 94 mg/dL (75-110); POTASSIUM 3.6 mmol/L (3.6-5.0); SALICYLATE 1.5 mg/dL (2.0-20.0); TOTAL PROTEIN 9.1 g/dL (6.3-8.2)
[2018-03-13 21:22] LABS: CARBON DIOXIDE 24 mmol/L (22-30); CHLORIDE 100 mmol/L (98-107); SODIUM 144.5 mmol/L (137-145)
[2018-03-13 21:24] LABS: ACETAMINOPHEN < 10 ug/mL (10-30); ALCOHOL < 10 mg/dL (NONE DETECTED); ANION GAP 21 (5-19)
[2018-03-13 23:09] LABS: APPEARANCE,URINE SLIGHTLY-CLOUDY; BILIRUBIN,URINE NEGATIVE (NEGATIVE); COLOR,URINE YELLOW; GLUCOSE, URINE NEGATIVE (NEGATIVE); KETONES,URINE 80 mg/dL (NEGATIVE); LEUKOCYTE ESTERASE,URINE TRACE (NEGATIVE); NITRITE,URINE NEGATIVE (NEGATIVE); PROTEIN,URINE 100 mg/dL (NEGATIVE); URINE SPECIFIC GRAVITY 1.024; UROBILINOGEN,URINE NEGATIVE mg/dL (<2.0)
[2018-03-13 23:27] LABS: URINE AMPHETAMINES SCREEN UNCONFIRMED POSITIVE; URINE BARBITURATES SCREEN NEGATIVE; URINE BENZODIAZEPINES SCREEN NEGATIVE; URINE COCAINE SCREEN NEGATIVE; URINE MARIJUANA (THC) SCREEN NEGATIVE; URINE METHADONE SCREEN NEGATIVE; URINE PHENCYCLIDINE SCREEN NEGATIVE
[2018-03-14] MEDS ORDERED: ONDANSETRON ODT 4 MG TAB (6 TAB/ER DISP) PO PRN (01:22)
[2018-03-14] MEDS ORDERED: METOCLOPRAMIDE HCL INJ/PF 10 MG/2 ML SDV IV ONE (01:22)
[2018-03-14 01:24] VITALS: BP 114/54
--- NOTE | 2018-03-14 09:55 | EKG REPORT ---
SEVERITY:- OTHERWISE NORMAL ECG - SINUS TACHYCARDIA : Confirmed by: Jessica Chambers 14-Mar-2018 09:54:40
== END 2018-03-14 01:46 | disposition home or self-care (01) ==
LOC: ER 20:35
DX: F15.90 Other stimulant use, unspecified, uncomplicated (principal); E86.0 Dehydration; R00.0 Tachycardia, unspecified; F17.210 Nicotine dependence, cigarettes, uncomplicated; Z91.018 Allergy to other foods
CPT/HCPCS: 93005; 99284; 96361; 96374; 96375; 36415; 80307 ×4; 82550; 84703; 85025; 80053; 81001; 93010; J2060; J2405; J7030

== ENCOUNTER 2018-03-15 02:34 | Emergency (ER) | payer MEDICAID ==
[2018-03-15 02:47] VITALS: BP 129/80
--- NOTE | 2018-03-15 03:28 | ER Document Report ---
ED General - General Chief Complaint: Other Stated Complaint: TROUBLE SLEEPING Time Seen by Provider: 03/15/18 03:00 Mode of Arrival: Ambulatory Information source: Patient Notes: Patient presents the emergency department with chief complaint of sleeplessness. Patient was just discharged from our facility approximately 24 hours ago for a Adderall overdose. Patient reports that she was intoxicated with friends and at approximately 3 AM Thursday morning she began to 30 mg every few hours for a total dose of 5 doses. Patient reports that she did this to "stay awake". Patient denies any intent of self-harm. Patient reports that she is unable to sleep and would like us to prescribe something to help her. TRAVEL OUTSIDE OF THE [place] IN LAST 30 DAYS: No - Related Data Allergies/Adverse Reactions: No Known Drug Allergies Allergy (Verified 03/06/18 20:18) Onion Allergy (Uncoded 03/06/18 20:18) Past Medical History - General Information source: Patient - Social History Smoking Status: Never Smoker Frequency of alcohol use: None Drug Abuse: None Family History: Reviewed & Not Pertinent Patient has suicidal ideation: No Patient has homicidal ideation: No Pulmonary Medical History: Reports: Hx Asthma Renal/ Medical History: Reports: Hx Pelvic Inflammatory Disease - Gonnorhea. Denies: Hx Peritoneal Dialysis Psychiatric Medical History: Reports: Hx Depression Past Surgical History: Reports: Hx Appendectomy - Immunizations Hx Diphtheria, Pertussis, Tetanus Vaccination: Yes Review of Systems - Review of Systems Constitutional: No symptoms reported EENT: No symptoms reported Cardiovascular: No symptoms reported Respiratory: No symptoms reported Gastrointestinal: No symptoms reported Genitourinary: No symptoms reported Female Genitourinary: No symptoms reported Musculoskeletal: No symptoms reported Skin: No symptoms reported Hematologic/Lymphatic: No symptoms reported Neurological/Psychological: No symptoms reported Physical Exam - Vital signs Vitals: Temp Pulse Resp BP Pulse Ox 98.9 F 91 18 129/80 H 100 03/15/18 02:45 03/15/18 02:45 03/15/18 02:45 03/15/18 02:45 03/15/18 02:45 - Notes Notes: PHYSICAL EXAMINATION: GENERAL: Well-appearing, well-nourished and in no acute distress. HEAD: Atraumatic, normocephalic. EYES: Pupils equal round extraocular movements intact, conjunctiva are normal. ENT: Nares patent NECK: Normal range of motion LUNGS: No respiratory distress Musculoskeletal: Normal range of motion NEUROLOGICAL: Normal speech, normal gait. PSYCH: Normal mood, normal affect. SKIN: Warm, Dry, normal turgor, no rashes or lesions noted. Course - Re-evaluation Re-evalutation: 03/15/18 03:31 Explained to patient that this is a normal side effect of taking excessive Adderall. We will not be prescribing her any medications for sleep. Encouraged patient not to take any [id number] sleep medications. Patient was encouraged to increase her oral intake and try some relaxation techniques. - Vital Signs Vital signs: Temp Pulse Resp BP Pulse Ox 98.9 F 91 18 129/80 H 100 03/15/18 02:45 03/15/18 02:45 03/15/18 02:45 03/15/18 02:45 03/15/18 02:45 Discharge - Discharge Clinical Impression: Sleeplessness Qualifiers: Insomnia type: drug-induced Qualified Code(s): F19.982 - Other psychoactive substance use, unspecified with psychoactive substance-induced sleep disorder Condition: Stable Disposition: HOME, SELF-CARE Additional Instructions: Your insomnia is likely due to the excessive amount of Adderall you took yesterday. Drink plenty of fluids. Try some relaxation techniques to help you fall asleep. Do not take any medications to help you sleep.
== END 2018-03-15 03:32 | disposition home or self-care (01) ==
LOC: ER 02:34
DX: F19.982 Other psychoactive substance use, unspecified with psychoactive substance-induced sleep disorder (principal)
CPT/HCPCS: 99283

== ENCOUNTER 2018-07-17 23:00 | Emergency (ER) | payer MEDICAID, OTHER ==
[2018-07-17 23:21] VITALS: BP 114/71
[2018-07-17] MEDS ORDERED: ONDANSETRON 4 MG TAB.RAPDIS PO ONE (23:39)
[2018-07-17] MEDS ORDERED: FAMOTIDINE 20 MG TABLET PO ONE (23:39)
[2018-07-17] MEDS ORDERED: SUCRALFATE 1 GM TABLET PO ONE (23:39)
--- NOTE | 2018-07-17 23:50 | ER Document Report ---
ED General - General Chief Complaint: Chest Pain Stated Complaint: CHEST PAIN, NECK PAIN Time Seen by Provider: 07/17/18 23:27 Notes: Patient is a 23-year-old female that comes to the emergency department for chief complaint of upper abdominal pain and chest pain. She states symptoms lasted less than 30 minutes and have now resolved. She states she felt nauseated with it as well. She denies dizziness, shortness of breath, fever. She states she has not felt great all day after drinking heavily last night and smoking a full pack of cigarettes last night. She states she is used Adderall recreationally in the past but denies street drugs otherwise. And to be within the past month. Denies any daily medications. TRAVEL OUTSIDE OF THE [place] IN LAST 30 DAYS: No - Related Data Allergies/Adverse Reactions: No Known Drug Allergies Allergy (Verified 03/06/18 20:18) Onion Allergy (Uncoded 03/06/18 20:18) Past Medical History - General Information source: Patient - Social History Smoking Status: Current Every Day Smoker Smoking Education Provided: Yes - <3 min Frequency of alcohol use: Social Drug Abuse: None Lives with: Family Family History: Reviewed & Not Pertinent Pulmonary Medical History: Reports: Hx Asthma Renal/ Medical History: Reports: Hx Pelvic Inflammatory Disease - Gonnorhea. Denies: Hx Peritoneal Dialysis Psychiatric Medical History: Reports: Hx Depression Past Surgical History: Reports: Hx Appendectomy - Immunizations Hx Diphtheria, Pertussis, Tetanus Vaccination: Yes Review of Systems - Review of Systems Constitutional: No symptoms reported EENT: No symptoms reported Cardiovascular: See HPI Respiratory: See HPI Gastrointestinal: See HPI Genitourinary: No symptoms reported Female Genitourinary: No symptoms reported Musculoskeletal: No symptoms reported Skin: No symptoms reported Hematologic/Lymphatic: No symptoms reported Neurological/Psychological: No symptoms reported Physical Exam - Vital signs Vitals: Temp Pulse Resp BP Pulse Ox 98.2 F 71 16 114/71 97 07/17/18 23:18 07/17/18 23:18 07/17/18 23:18 07/17/18 23:18 07/17/18 23:18 - Notes Notes: GENERAL: Alert, interacts well. No acute distress. HEAD: Normocephalic, atraumatic. EYES: Pupils equal, round, and reactive to light. Extraocular movements intact. ENT: Oral mucosa moist, tongue midline. Oropharynx unremarkable. Airway patent. Nares patent, no nasal septal hematoma, TM's intact. NECK: Full range of motion. Supple. Trachea midline. LUNGS: Clear to auscultation bilaterally, no wheezes, rales, or rhonchi. No respiratory distress. HEART: Regular rate and rhythm. No murmur ABDOMEN: Soft, non-tender. Non-distended. Bowel sounds present in all 4 quadrants. GENITOURINARY: Deferred EXTREMITIES: Moves all 4 extremities spontaneously. No edema, normal radial and dorsalis pedis pulses bilaterally. No cyanosis. BACK: no cervical, thoracic, lumbar midline tenderness. No saddle anesthesia, normal distal neurovascular exam. NEUROLOGICAL: Alert and oriented x3. Normal speech. [cranial nerves II through XII grossly intact]. PSYCH: Normal affect, normal mood. SKIN: Warm, dry, normal turgor. No rashes or lesions noted. Course - Re-evaluation Re-evalutation: EKG sinus rhythm with no T wave inversions or ST segment change negative leads. QTc and [place] interval are unremarkable. Patient with no current symptoms, upper abdominal/chest symptoms completely resolved. Vital signs unremarkable. As result I have very low suspicion of ACS, dissection, pulmonary embolism, or acute abdomen. Provided with was not p.o. medications for reflux/esophageal spasm. Discussed recommendations, follow-up, and return precautions. Patient states understanding and agreement. - Vital Signs Vital signs: Temp Pulse Resp BP Pulse Ox 98.2 F 71 16 114/71 97 07/17/18 23:18 07/17/18 23:18 07/17/18 23:18 07/17/18 23:18 07/17/18 23:18 Discharge - Discharge Clinical Impression: Upper abdominal pain Chest pain Qualifiers: Chest pain type: unspecified Qualified Code(s): R07.9 - Chest pain, unspecified Condition: Stable Disposition: HOME, SELF-CARE Additional Instructions: Your evaluation is most consistent with inflammation of the upper abdominal tract (esophagitis/gastritis with an esophageal spasm that resolved). I recommend that you continue the famotidine medication for the next several days , start with bland diet and slowly progress. Initially avoid NSAIDs, alcohol, spicy food, caffeine. Avoid smoking. Follow-up with primary care. Return for concerning or worsening symptoms including vomiting, vomiting blood, severe worsening pain, fever, black stools, or any other concerning symptoms. Prescriptions: Famotidine [Pepcid 20 mg Tablet] 20 mg PO BID #12 tablet
--- NOTE | 2018-07-18 10:40 | EKG REPORT ---
SEVERITY:- NORMAL ECG - SINUS RHYTHM : Confirmed by: Jessica Chambers 18-Jul-2018 10:39:47
== END 2018-07-18 00:16 | disposition home or self-care (01) ==
LOC: ER 23:00
DX: R07.9 Chest pain, unspecified (principal); R10.10 Upper abdominal pain, unspecified; R11.0 Nausea; J45.909 Unspecified asthma, uncomplicated; F17.210 Nicotine dependence, cigarettes, uncomplicated; Z91.018 Allergy to other foods; Z90.49 Acquired absence of other specified parts of digestive tract
CPT/HCPCS: 93005; 99284; 93010; J3490 ×2; S0119

== ENCOUNTER 2018-11-28 11:58 | Emergency (ER) | payer SELFPAY ==
[2018-11-28 12:06] VITALS: BP 127/66
[2018-11-28] MEDS ORDERED: CEPHALEXIN 500 MG CAPSULE PO ONE (12:46)
[2018-11-28] MEDS ORDERED: SULFAMETHOXAZOLE/TRIMETHOPRIM 800-160 MG TABLET PO ONE (12:47)
--- NOTE | 2018-11-28 12:52 | ER Document Report ---
ED Extremity Problem, Lower - General Chief Complaint: Foot Injury Stated Complaint: LEFT FOOT PAIN, SWELLING Time Seen by Provider: 11/28/18 12:38 Mode of Arrival: Ambulatory Information source: Patient Notes: 23-year-old female presented to ED for injury to her left bottom of her foot. She states she thinks she got a splinter in it 5 days ago. She states she thought she got the splinter out but she did not know if she got it all out. She states now it has a swollen area with pus in it and it is painful. She is alert oriented respirations regular and unlabored speaking in full sentences walks with a even steady gait. She denies any fevers chills there is no redness to the area. TRAVEL OUTSIDE OF THE [place] IN LAST 30 DAYS: No - HPI Patient complains to provider of: Injury, Pain, Swelling Location: Foot - Left Occurred: Other Where: Outdoors - Days ago Onset/Duration: Intermittent Quality of pain: Other Severity: Moderate - Cut her foot 5 days ago now infected Pain Level: 2 Context: Barefoot Recent injury: Yes Associated symptoms: Painful ambulation Exacerbated by: Walking Relieved by: Nothing - Related Data Allergies/Adverse Reactions: No Known Drug Allergies Allergy (Verified 11/28/18 11:59) Onion Allergy (Uncoded 11/28/18 11:59) Past Medical History - General Information source: Patient - Social History Smoking Status: Current Every Day Smoker Cigarette use (# per day): Yes - 4 cigarettes a day Chew tobacco use (# tins/day): No Smoking Education Provided: Yes - 5 minutes Frequency of alcohol use: Occasional Drug Abuse: None Occupation: Unemployed Lives with: Alone - With son Family History: Reviewed & Not Pertinent Patient has suicidal ideation: No Patient has homicidal ideation: No - Past Medical History Cardiac Medical History: Reports: None Pulmonary Medical History: Reports: Hx Asthma EENT Medical History: Reports: None Neurological Medical History: Reports: None Endocrine Medical History: Reports: None Renal/ Medical History: Reports: Hx Pelvic Inflammatory Disease - Gonnorhea Malignancy Medical History: Reports: None GI Medical History: Reports: None Musculoskeletal Medical History: Reports None Skin Medical History: Reports None Psychiatric Medical History: Reports: Hx Depression Traumatic Medical History: Reports: None Infectious Medical History: Reports: None Past Surgical History: Reports: Hx Appendectomy - Immunizations Hx Diphtheria, Pertussis, Tetanus Vaccination: Yes Review of Systems - Review of Systems Constitutional: No symptoms reported EENT: No symptoms reported Cardiovascular: No symptoms reported Respiratory: No symptoms reported Gastrointestinal: No symptoms reported Genitourinary: No symptoms reported Female Genitourinary: No symptoms reported Musculoskeletal: No symptoms reported Skin: No symptoms reported Hematologic/Lymphatic: No symptoms reported Neurological/Psychological: No symptoms reported -: Yes All other systems reviewed and negative Physical Exam - Vital signs Vitals: Temp Pulse Resp BP Pulse Ox 98.1 F 94 16 127/66 H 100 11/28/18 12:05 11/28/18 12:05 11/28/18 12:05 11/28/18 12:05 11/28/18 12:05 Interpretation: Normal - General General appearance: Appears well, Alert - HEENT Head: Normocephalic, Atraumatic Eyes: Normal Pupils: PERRL - Respiratory Respiratory status: No respiratory distress Chest status: Nontender Breath sounds: Normal Chest palpation: Normal - Cardiovascular Rhythm: Regular Heart sounds: Normal auscultation Murmur: No - Abdominal Inspection: Normal Distension: No distension Bowel sounds: Normal Tenderness: Nontender Organomegaly: No organomegaly - Back Back: Normal, Nontender - Extremities General upper extremity: Normal inspection, Nontender, Normal color, Normal ROM, Normal temperature General lower extremity: Normal color, Normal ROM, Normal temperature, Normal weight bearing. No: Abdoulaye's sign Foot: Tender, Other - Small swollen infected area to the bottom of left foot - Neurological Neuro grossly intact: Yes Cognition: Normal Orientation: AAOx4 [place] Coma Scale Eye Opening: Spontaneous [place] Coma Scale Verbal: Oriented [place] Coma Scale Motor: Obeys Commands [place] Coma Scale Total: 15 Speech: Normal Motor strength normal: LUE, RUE, LLE, RLE Sensory: Normal - Psychological Associated symptoms: Normal affect, Normal mood - Skin Skin Temperature: Warm Skin Moisture: Dry Skin Color: Normal Skin irregularity: Abscess - bottom of left foot Location of irregularity: Extremities - left foot Irregularity with: Swelling, Tenderness, Warmth Course - Vital Signs Vital signs: Temp Pulse Resp BP Pulse Ox 98.1 F 94 16 127/66 H 100 11/28/18 12:05 11/28/18 12:05 11/28/18 12:05 11/28/18 12:05 11/28/18 12:05 Procedures - Incision and Drainage Left Foot Time completed: 13:20 Type: Simple Anesthetic type: Other - 0 mL's of anesthetic: 0 Blade size: 11 I&D procedure: Shurclens applied Incision Method: Incision made by scalpel Amount/type of drainage: Purulent drainage in the bottom of the foot Discharge - Discharge Clinical Impression: abscess bottom of the left foot Condition: Stable Disposition: HOME, SELF-CARE Instructions: Family Physicians / Practices Additional Instructions: ABSCESS: You have an abscess (boil). This a pus-forming infection, usually due to staph. Some boils may be left to drain on their own, but most require lancing. From the time the tender lump first appears, it may be three or four days before the abscess is ready to luli. Local heat and rest help at this stage of treatment. An antibiotic may prevent spread of the infection. Once the abscess is opened, packing may be placed into it. This is done so pus is not sealed inside by premature closure of the cavity. The packing will be removed at your follow-up visit or you may be advised to remove it yourself at home. Sometimes this packing must be replaced a few times during healing. The wound will heal with surprisingly little scar. Depending on the size and location of an abscess, healing can take one to four weeks. You may shower and wash the area around the incision site two or three times a day. Antibiotics may be prescribed, but are usually not necessary after an abscess has been drained. If you develop fever, chills, worsening pain, or increasing swelling in the area, call the doctor or return immediately. POST INCISION AND DRAINAGE: You have had an incision made to allow drainage of an abscess. The incision must remain open so that pus and debris can drain from the wound. If the abscess cavity is large, packing is placed. This keeps the tissues from collapsing and trapping pus inside, while the body shrinks the cavity. The packing may need to be replaced every day or two. The physician will instruct you on the packing. Keep a bulky dressing over the area. Replace it if it becomes saturated with blood or pus. Do not disturb the packing (if present). You may shower and cleanse the area with gentle soap and warm water two or three times a day. Local warmth may be soothing, and may promote faster healing. Return if you develop high fever or chills, or if you note spreading redness, increasing swelling, or increasing tenderness. CEPHALEXIN: The antibiotic you've been prescribed is a member of the cephalosporin class. This type of antibiotic covers a wide variety of infections, including those of the skin, lungs, and urinary tract. It's useful for staph infections. This antibiotic is slightly similar to the penicillin family. In rare cases, a person who is allergic to penicillin will also be allergic to this medication. If you have had a severe allergic reaction to penicillin, and have not taken this antibiotic since that time, notify your doctor. Antibiotics which cover many germs ("broad spectrum" antibiotics) are more likely to cause diarrhea or "yeast" infections. Women prone to vaginal yeast problems may suffer an attack after taking this antibiotic. In infants, oral thrush (white spots "stuck" on the cheek) or yeast diaper rash may result. See your doctor if these problems occur. Call at once if you develop itching, hives, shortness of breath, or lightheadedness. TRIMETHOPRIM-SULFA: You have been given a prescription for trimethoprim-sulfa (TMS, Septra, Bactrim). This is a combination antibiotic of the sulfa class, often used for urinary tract infections, middle ear infections, bronchitis, shigella intestinal infection, and Pneumocystis pneumonia. TMS is usually well-tolerated. Occasional side effects include nausea and decreased appetite. Septra is not recommended for infants less than two months of age. Do not take this medication if you have experienced severe side effects or allergy to sulfa medicine. You should stop this medicine at once and contact your physician if you develop any rash, joint pain, shortness of breath, bruising, or jaundice (yellow color in the skin), or if you develop any other new or unusual symptoms. Epsom Salt Soaks Soak the wound area in a container of warm epsom salt water. If you can't get the wound area into a bucket or bhatti, use a folded towel soaked in the epsom salt solution and apply to the area. Use clean hot tap water (about the temperature of a very warm bath), mixing in about one (1) teaspoon for every pint of water. Two gallon --> 16 teaspoons Epsom Salts One gallon --> 8 teaspoons Epsom Salts Two quarts --> 4 teaspoons Epsom Salts One quart --> 2 teaspoons Epsom Salts Soak the wound for about 20 minutes while gently moving it around in the water. Repeat this four (4) times a day. Acetaminophen Acetaminophen may be taken for pain relief or fever control. It's much safer than aspirin, offering a wider range of "safe" dosages. It is safe during . Some brand names are Tylenol, Panadol, Datril, Anacin 3, Tempra, and Liquiprin. Acetaminophen can be repeated every four hours. The following are maximum recommended dosages: WEIGHT Dose Drops Elixir Chewable(80mg) (LBS.) drprs=droppers tsp=teaspoon 6 40 mg .4 ml (1/2) 6-11 80 mg .8 ml (full) 1/2 tsp 1 tab 12-16 120 mg 1 1/2 drprs 3/4 tsp 1 1/2 tabs 17-23 160 mg 2 drprs 1 tsp 2 tabs 24-30 240 mg 3 drprs 1 1/2 tsp 3 tabs 30-35 320 mg 2 tsp 4 tabs 36-41 360 mg 2 1/4 tsp 4 1/2 tabs 42-47 400 mg 2 1/2 tsp 5 tabs 48-53 480 mg 3 tsp 6 tabs 54-59 520 mg 3 1/4 tsp 6 1/2 tabs 60-64 560 mg 3 1/2 tsp 7 tabs 65-70 600 mg 3 3/4 tsp 7 1/2 tabs 71-76 640 mg 4 tsp 8 tabs 77-82 720 mg 4 1/2 tsp 9 tabs 83-88 800 mg 5 tsp 10 tabs >89 pounds or adults 650 mg to 900 mg Acetaminophen can be repeated every four hours. Maximum daily dose not to exceed 4000 mg. These maximum recommended dosages are slightly higher than the dosages written on the product container, but these dosages are very safe and well below the toxic dosage for acetaminophen. Ibuprofen Ibuprofen is an excellent, safe drug for pain control. In addition, it has potent antiinflammatory effects which are beneficial, especially in the treatment of injuries, arthritis, or tendonitis. It's best to take ibuprofen with food. Persons with ulcer disease or allergy to aspirin should notify their physician of this before taking ibuprofen. Take the medication exactly as prescribed. Don't take additional doses unless instructed to do so by your doctor. If you develop wheezing, shortness of breath, hives, faintness, stomach pain, vomiting, or dark black stools, return for re-evaluation at once. FOLLOW-UP CARE: Most simple abscesses will not require a follow up visit. If you had packing placed in the abscess, remove it as instructed by the physician. If you have been referred to a physician for follow-up care, call the physicians office for an appointment as you were instructed or within the next two days. If you experience worsening or a significant change in your symptoms, return to the Emergency Department at any time for re-evaluation. Prescriptions: Cephalexin Monohydrate [Keflex 500 mg Capsule] 500 mg PO Q6H 10 Days capsule Sulfamethoxazole/Trimethoprim [Bactrim Ds Tablet] 1 each PO BID #20 tablet
[2018-11-28] MEDS ORDERED: ACETAMINOPHEN 325 MG TABLET PO ONE (13:15)
== END 2018-11-28 13:32 | disposition home or self-care (01) ==
LOC: ER 11:58
DX: L02.612 Cutaneous abscess of left foot (principal); F17.210 Nicotine dependence, cigarettes, uncomplicated
CPT/HCPCS: 99283; 99406

== ENCOUNTER 2019-01-16 06:43 | Emergency (ER) | payer SELFPAY ==
[2019-01-16 06:51] VITALS: BP 134/67
--- NOTE | 2019-01-16 08:38 | ER Document Report ---
HPI - HPI Time Seen by Provider: 01/16/19 08:05 Pain Level: 4 Context: Patient is a 23-year-old female who presents to the emergency department with a chief complaint of sore throat. Patient states that she developed a sore throat 1 week ago after smoking 2 packs of cigarettes and one night. Patient states intermittently she has had a dry cough over the past week with no fever or ear pain or headache. Patient states she was outside smoking tonight when she start ed to develop a productive cough with clear sputum. Patient denies nausea vomiting or diarrhea. Patient states she has been eating and drinking appropriately. Patient denies any other complaints. - REPRODUCTIVE LMP: 2 weeks ago Reproductive: DENIES: : Past Medical History - General Information source: Patient - Social History Smoking Status: Current Every Day Smoker Cigarette use (# per day): Yes Frequency of alcohol use: Social Drug Abuse: None Family History: Reviewed & Not Pertinent - Past Medical History Cardiac Medical History: Reports: None Pulmonary Medical History: Reports: Hx Asthma EENT Medical History: Reports: None Neurological Medical History: Reports: None Endocrine Medical History: Reports: None Renal/ Medical History: Reports: Hx Pelvic Inflammatory Disease - Gonnorhea. Denies: Hx Peritoneal Dialysis Malignancy Medical History: Reports: None GI Medical History: Reports: None Musculoskeletal Medical History: Reports None Skin Medical History: Reports None Psychiatric Medical History: Reports: Hx Depression Traumatic Medical History: Reports: None Infectious Medical History: Reports: None Past Surgical History: Reports: Hx Appendectomy - Immunizations Hx Diphtheria, Pertussis, Tetanus Vaccination: Yes Vertical Provider Document - CONSTITUTIONAL Agree With Documented VS: Yes Exam Limitations: No Limitations General Appearance: WD/WN, No Apparent Distress - INFECTION CONTROL TRAVEL OUTSIDE OF THE [place] IN LAST 30 DAYS: No - HEENT HEENT: Atraumatic, Normal ENT Exam, Normocephalic, PERRLA - NECK Neck: Normal Inspection - RESPIRATORY Respiratory: Breath Sounds Normal, No Respiratory Distress - CARDIOVASCULAR Cardiovascular: Regular Rate, Regular Rhythm - GI/ABDOMEN Gastrointestinal: Abdomen Soft, Abdomen Non-Tender - BACK Back: Normal Inspection - NEURO Level of Consciousness: Awake, Alert, Appropriate - DERM Integumentary: Warm, Dry, No Rash Course - Re-evaluation Re-evalutation: 01/16/19 08:37 My suspicion is low but I will obtain a throat swab to rule out strep due to the 1 week history of sore throat. I have advised the patient that since smoking cigarettes seems to exacerbate her symptoms she needs to stop smoking. Patient states she knows that this is irritating to her but wanted to get checked out for pneumonia. I do not believe a chest x-ray is necessary at this time since patient is just developed a cough today, has been afebrile, and lungs were clear throughout lung bethea. Patient is resting comfortably on stretcher in no acute respiratory distress. 01/16/19 09:30 I did discuss results of the strep test with the patient. Patient states that she feels like she needs a steroid or antibiotics. I explained to patient that since her cough started this morning I do not believe that this is necessary. I believe that she needs to be treated for the symptoms as I explained to the patient to include saline nasal rinses, I will place her on Zyrtec for possible allergies, I informed the patient and educated was provided to stop smoking as this can be an irritant for her sore throat. I did tell patient to return for difficulty swallowing, worsening symptoms, shortness of breath or fever. I will give a dose of Zyrtec and ibuprofen prior to discharge. Patient stable at discharge. - Vital Signs Vital signs: Temp Pulse Resp BP Pulse Ox 97.7 F 88 16 134/67 H 98 01/16/19 06:50 01/16/19 06:50 01/16/19 06:50 01/16/19 06:50 01/16/19 06:50 Discharge - Discharge Clinical Impression: Cough, Sore throat Upper respiratory infection Qualifiers: URI type: unspecified viral URI Qualified Code(s): J06.9 - Acute upper respiratory infection, unspecified Condition: Stable Disposition: HOME, SELF-CARE Additional Instructions: Today you were seen in the emergency department for sore throat cough that started today. We did perform a strep test which was negative. I do believe that your symptoms appear to be viral. For the congestion and nose you can use saline nasal sprays that you can buy [id number] at a pharmacy. You could also use Zyrtec, this is an antihistamine used for allergies. This may help with your symptoms. Return to the emergency department change in symptoms to include fever, chest pain, shortness of breath or any other concerning signs or symptoms. Upper Respiratory Illness You have a viral infection of the respiratory passages -- a "cold." This common infection causes nasal congestion, drainage, and often sore throat and cough. It is caused by a virus and is highly contagious. The disease usually lasts a week or more, though the worst symptoms are usually over in 3 or 4 days. There is no "cure" for the viral infection -- it must run its course. If there is a complication, such as bacterial infection in the nose, sinuses, middle ear, or bronchial tubes, antibiotics may be required, but antibiotics won't affect the virus. If you smoke, you should STOP!! Drink plenty of fluids. A humidifier may help. An expectorant medication or decongestant may make you more comfortable. Use acetaminophen or ibuprofen for fever or aches. See the doctor if fever persists over two or three days, if there is any significant worsening of your symptoms, or if you simply fail to improve as expected. Expectorant Medication An expectorant medicine has been prescribed. This type of drug makes mucous thinner, helping the sinuses, nose, and bronchial tubes to remain free of pus and mucous. Expectorants make a cough less severe and more comfortable, and help infected sinuses drain. In general, antihistamines defeat the purpose of the expectorant by making mucous thicker. They should be avoided unless specifically recommended by your physician. Viral Syndrome The physician has diagnosed a viral infection. Viruses not only cause "colds," but can cause many different symptoms including generalized aching, fever, headache, cough, diarrhea, nausea, vomiting, and fatigue. The treatment, for the most part, is simply relief of symptoms. This means that antibiotics are usually not given. Rest, fluids, pain medications and, occasionally, medication for the specific symptoms that are most bothersome will be prescribed. Use good handwashing to avoid passing the virus to others. Shared toys should be cleaned with disinfectant. Clean the toilets, sinks, and counter surfaces in bathrooms. Launder clothing in hot water. Contact the physician if you develop any new or unusual symptoms such as severe headache, stiff neck, high fever, chest pain, productive cough, or shortness of breath. You should be rechecked if you don't see marked improvement within seven to 10 days. Prescriptions: Cetirizine HCl [Zyrtec] 10 mg PO DAILY #30 capsule Forms: Smoking Cessation Education
[2019-01-16] MEDS ORDERED: IBUPROFEN 800 MG TABLET PO ONE (09:31)
[2019-01-16] MEDS ORDERED: CETIRIZINE 10 MG TABLET PO ONE (09:31)
== END 2019-01-16 09:40 | disposition home or self-care (01) ==
LOC: ER 06:43
DX: J02.9 Acute pharyngitis, unspecified (principal); J06.9 Acute upper respiratory infection, unspecified; B97.89 Other viral agents as the cause of diseases classified elsewhere; R05 Cough; J45.909 Unspecified asthma, uncomplicated; F17.210 Nicotine dependence, cigarettes, uncomplicated
CPT/HCPCS: 87070; 87880; 99283

== ENCOUNTER 2019-05-24 13:31 | Day surgery (SDC) | payer MEDICAID ==
[~2019-05-24 13:31] MED LIST: CEFAZOLIN SODIUM 2 GM in DEXTROSE 5%-WATER 100 ML IV PRN; DEXAMETHASONE SOD PHOSPHATE INJ 4 MG/1 ML VIAL ONE; FENTANYL CITRATE INJ/PF 100 MCG/2 ML AMPUL ONE; MIDAZOLAM 2 MG/2 ML INJ ONE; ONDANSETRON HCL INJ/PF 4 MG/2 ML SDV ONE; PROPOFOL INJ 200 MG/20 ML VIAL IV ONE
[2019-05-24 14:28] LABS: ABSOLUTE EOSINOPHILS # (AUTO) 0.2 10^3/uL (0.0-0.6); ABSOLUTE LYMPHOCYTES (AUTO) 1.8 10^3/uL (0.5-4.7); ABSOLUTE MONOCYTES (AUTO) 0.3 10^3/uL (0.1-1.4); BASOPHILS % (AUTO) 0.6 % (0-2); EOSINOPHILS % (AUTO) 2.5 % (0-6); HEMATOCRIT 39.4 % (36.0-47.0); HEMOGLOBIN 13.4 g/dL (12.0-15.5); MEAN CORPUSCULAR HEMOGLOBIN 29.7 pg (27.0-33.4); MEAN CORPUSCULAR VOLUME 87 fl (80-97); MONOCYTES % (AUTO) 4.3 % (3-13); PLATELET COUNT 161 10^3/uL (150-450); RED BLOOD COUNT 4.51 10^6/uL (3.72-5.28); SEGMENTED NEUTROPHILS % (AUTO) 68.6 % (42-78); TOTAL CELLS COUNTED % (AUTO) 100 %; WHITE BLOOD COUNT 7.3 10^3/uL (4.0-10.5)
[2019-05-24 14:46] LABS: ANION GAP 11 (5-19); BLOOD UREA NITROGEN 11 mg/dL (7-20); CALCIUM 9.5 mg/dL (8.4-10.2); CARBON DIOXIDE 22 mmol/L (22-30); CHLORIDE 106 mmol/L (98-107); GLUCOSE 81 mg/dL (75-110)
[2019-05-24] MEDS ORDERED: MIDAZOLAM 2 MG/2 ML INJ ONE (16:08)
[2019-05-24] MEDS ORDERED: PROPOFOL INJ 200 MG/20 ML VIAL IV ONE (16:08)
[2019-05-24] MEDS ORDERED: FENTANYL CITRATE INJ/PF 100 MCG/2 ML AMPUL ONE (16:08)
[2019-05-24] MEDS ORDERED: LIDOCAINE 2% INJ-PF (20 MG/ML) 10 ML AMPUL ONE (16:08)
[2019-05-24] MEDS ORDERED: LIDOCAINE 1% INJ-PF (10 MG/ML) 30 ML SDV ONE (17:38)
[2019-05-24] MEDS ORDERED: OXYCODONE-ACETAMINOPHEN 5-325 MG TABLET PO PRN ×3 (17:48→18:26)
[2019-05-24] MEDS ORDERED: ONDANSETRON HCL INJ/PF 4 MG/2 ML SDV IV PRN ×2 (17:48→18:26)
[2019-05-24] MEDS ORDERED: FENTANYL CITRATE INJ/PF 100 MCG/2 ML AMPUL IV PRN ×3 (17:48)
[2019-05-24] MEDS ORDERED: MEPERIDINE HCL/PF INJ 25 MG/1 ML DISP.SYRIN IV PRN (17:48)
[2019-05-24] MEDS ORDERED: PROMETHAZINE HCL INJ 25 MG/1 ML VIAL IV PRN ×2 (17:48)
[2019-05-24] MEDS ORDERED: DIPHENHYDRAMINE HCL 50 MG/ML VIAL IV PRN (17:48)
[2019-05-24] MEDS ORDERED: LIDOCAINE 1% INJ (10 MG/ML) 10 ML MDV INJ ONE (17:50)
--- NOTE | 2019-05-24 18:26 | Discharge Summary ---
Discharge Summary (SDC) - Discharge Final Diagnosis: Left small finger middle phalanx fracture at the DIP joint Date of Surgery: 05/24/19 Discharge Date: 05/24/19 Condition: Good Treatment or Instructions: Schedule Follow Up w/ Dr. Maciel Artis @ [facility] to be seen in 10-14 days or as scheduled [place]: [place]: [place]: Ice and elevate Keep splint clean/dry/intact, do not remove. If your fingers become numb please unwrap the Stephan wrap but leave the splint in place, if the sensation does not return within 30 minutes please return to the emergency department. May begin finger range of motion attempting to make full fist. Please use ibuprofen (Motrin or Advil) 600-800 mg every 8 hours as needed for pain or fever DO NOT TAKE w/ TORADOL may use once TORADOL complete. You may also use acetaminophen (Tylenol) 1000 mg every 4-6 hours as needed for pain or fever. Please be aware that many medications contain acetaminophen, do not exceed a total of 1000 mg of acetaminophen every 6 hours. If ibuprofen and acetaminophen are not sufficient for your pain you may take the Percocet/[place]. Please be aware that the Percocet/[place] does contain Tylenol. Stool softener of choice when on pain medication. USE OF [id number] IBUPROFEN: Ibuprofen (Advil, Nuprin, Medipren, Motrin IB) is a medication for fever and pain control. In addition, it has anti- inflammatory effects which may be beneficial, especially in the treatment of injuries. It's best to take ibuprofen with food. Persons with ulcer disease or a llergy to aspirin should notify their physician of this before taking ibuprofen. Ibuprofen can be given every four to six hours, for a total of four doses daily. Age Pain or fever dose Antiinflammatory dose 6-8 yr 200 mg (1 tab) 200 mg (1 tab) 9-11 yr 200 mg (1 tab) 200-400 mg (1-2 tab) 11-14 yr 200-400 mg (1-2 tab) 400 mg (2 tab) 15-adult 400 mg (2 tab) 600 mg (3 tab) ORAL NARCOTIC MEDICATION: You have been given a prescription for pain control. This medication is a narcotic. It's best taken with food, as nausea can result if taken on an empty stomach. Don't operate machinery or drive within six hours of taking this medicatio n. Do not combine this medicine with alcohol, or with any medication which can cause sedation (such as cold tablets or sleeping pills) unless you get permission from the physician. Narcotics tend to cause constipation. If possible, drink plenty of fluids and eat a diet high in fiber and fruits. Please be aware that prescription narcotics also have the potential for abuse. People become addicted to these medications because of the general sense of wellbeing that they induce. This feeling along with a significant reduction in tension, anxiety, and aggression provides a stimulating seductive quality to these drugs. Once your pain is under control, we encourage you to discard your unused narcotics. Prescriptions: Oxycodone HCl/Acetaminophen [Percocet 5-325 mg Tablet] 1 tab PO Q6 PRN #25 tab PRN Reason: Discharge Diet: As Tolerated Respiratory Treatments at Home: Deep Breathing/Coughing Discharge Activity: No Lifting Over 10 Pounds, No Lifting/Push/Pulling Report the Following to Your Physician Immediately: Fever over 101 Degrees, Unusual Bleeding, Redness, Swelling, Warmth, Increased Soreness
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
[2019-05-24] MEDS ORDERED: OXYCODONE-ACETAMINOPHEN 5-325 MG TABLET ONE (18:42)
--- NOTE | 2019-05-24 19:21 | RADIOLOGY REPORT (SQ) ---
EXAM DESCRIPTION: NO CHG FLUORO; FINGER LEFT COMPLETED DATE/TIME: 05/24/2019 6:51 pm; 05/24/2019 6:53 pm REASON FOR STUDY: PERC PINNING 5TH DIGIT COMPARISON: None. FLUOROSCOPY TIME: 1 minutes 27 seconds 2 Images saved to PACS LIMITATIONS: None. PROCEDURE: Pinning of the 5th middle phalanx. FINDINGS: Images from fluoro document the procedure. IMPRESSION: Pinning of the 5th middle phalanx. Refer to operative note for further information. COMMENT: PQRS 6045F: Fluoroscopy time of the procedure is documented in the report. TECHNICAL DOCUMENTATION: JOB ID: [id number] [employer]- All Rights Reserved Reading location - IP/workstation name: [email or web address]
--- NOTE | 2019-05-24 19:21 | RADIOLOGY REPORT (SQ) ---
EXAM DESCRIPTION: NO CHG FLUORO; FINGER LEFT COMPLETED DATE/TIME: 05/24/2019 6:51 pm; 05/24/2019 6:53 pm REASON FOR STUDY: PERC PINNING 5TH DIGIT COMPARISON: None. FLUOROSCOPY TIME: 1 minutes 27 seconds 2 Images saved to PACS LIMITATIONS: None. PROCEDURE: Pinning of the 5th middle phalanx. FINDINGS: Images from fluoro document the procedure. IMPRESSION: Pinning of the 5th middle phalanx. Refer to operative note for further information. COMMENT: PQRS 6045F: Fluoroscopy time of the procedure is documented in the report. TECHNICAL DOCUMENTATION: JOB ID: [id number] [employer]- All Rights Reserved Reading location - IP/workstation name: [email or web address]
[2019-05-24] MEDS ORDERED: HYDROMORPHONE HCL INJ/PF 2 MG/ML AMPULE IV PRN (19:30)
[2019-05-24] MEDS ORDERED: HYDROMORPHONE HCL INJ/PF 2 MG/ML AMPULE ONE (19:31)
[2019-05-24] MEDS ORDERED: ONDANSETRON HCL INJ/PF 4 MG/2 ML SDV ONE (20:14)
[2019-05-24] MEDS ORDERED: DIPHENHYDRAMINE HCL 25 MG CAPSULE ONE (20:40)
[2019-05-24 20:59] VITALS: BP 107/53
== END 2019-05-24 20:50 | disposition home or self-care (01) ==
LOC: OROUT 13:31
PROVIDERS: ATTEND Orthopaedic Surgery
DX: S62.627A Displaced fracture of middle phalanx of left little finger, initial encounter for closed fracture (principal); Y04.0XXA Assault by unarmed brawl or fight, initial encounter; J45.909 Unspecified asthma, uncomplicated; Z87.891 Personal history of nicotine dependence
CPT/HCPCS: 36415; 85025; 81025; 80048; 73140; 01830; 26727; C1713 ×2; J2250; J0690; J3490 ×4; J3010; J1170; J2405; J7060; J2704; J1100

== ENCOUNTER 2019-11-07 02:29 | Emergency (ER) | payer MEDICAID ==
--- NOTE | 2019-11-07 03:28 | ER Document Report ---
ED GI/ - General Chief Complaint: Lower Abdominal Pain Stated Complaint: Flank pain Time Seen by Provider: 11/07/19 03:13 Notes: Patient is a 24-year-old female that comes to the emergency department for chief complaint of lower abdominal cramping with pain radiating around to her right flank. She states she feels like she is getting a urinary tract infection. She reports nausea but she denies vomiting. She denies sick symptoms otherwise including congestion, cough, fever. She denies vaginal bleeding or discharge, she denies concerns of STD and states that she is in a same sex relationship. She is having normal bowel movements. She has had an appendectomy. She denies any daily medications or medical history otherwise. TRAVEL OUTSIDE OF THE [place] IN LAST 30 DAYS: No - Related Data Allergies/Adverse Reactions: No Known Drug Allergies Allergy (Verified 06/02/19 11:44) Onion Allergy (Uncoded 06/02/19 11:44) onions Allergy (Uncoded 06/02/19 11:44) Past Medical History - General Information source: Patient - Social History Smoking Status: Current Every Day Smoker Frequency of alcohol use: None Drug Abuse: None Lives with: Family Family History: Reviewed & Not Pertinent Patient has suicidal ideation: No Patient has homicidal ideation: No - Past Medical History Cardiac Medical History: Denies: Hx Coronary Artery Disease, Hx Heart Attack, Hx Hypertension Pulmonary Medical History: Reports: Hx Asthma - MODERATE Denies: Hx Bronchitis, Hx COPD, Hx Pneumonia Neurological Medical History: Denies: Hx Cerebrovascular Accident, Hx Seizures Renal/ Medical History: Reports: Hx Pelvic Inflammatory Disease - Gonnorhea. Denies: Hx Peritoneal Dialysis Musculoskeletal Medical History: Denies Hx Arthritis Psychiatric Medical History: Reports: Hx Anxiety, Hx Depression Past Surgical History: Reports: Hx Appendectomy - Immunizations Hx Diphtheria, Pertussis, Tetanus Vaccination: Yes Review of Systems - Review of Systems Constitutional: No symptoms reported EENT: No symptoms reported Cardiovascular: No symptoms reported Respiratory: No symptoms reported Gastrointestinal: See HPI Genitourinary: See HPI Female Genitourinary: No symptoms reported Musculoskeletal: No symptoms reported Skin: No symptoms reported Hematologic/Lymphatic: No symptoms reported Neurological/Psychological: No symptoms reported Physical Exam - Vital signs Vitals: Temp Pulse Resp BP Pulse Ox 98.1 F 65 16 108/61 99 11/07/19 02:31 11/07/19 02:31 11/07/19 02:31 11/07/19 02:31 11/07/19 02:31 - Notes Notes: GENERAL: Alert, interacts well. No acute distress. HEAD: Normocephalic, atraumatic. EYES: Pupils equal, round, and reactive to light. Extraocular movements intact. ENT: Oral mucosa moist, tongue midline. Oropharynx unremarkable. Airway patent. LUNGS: Clear to auscultation bilaterally, no wheezes, rales, or rhonchi. No respiratory distress. HEART: Regular rate and rhythm. No murmur ABDOMEN: Soft, non-tender. Non-distended. EXTREMITIES: Moves all 4 extremities spontaneously. No edema, normal radial and dorsalis pedis pulses bilaterally. No cyanosis. BACK: No CVA tenderness. No cervical, thoracic, lumbar midline tenderness. No saddle anesthesia, normal distal neurovascular exam. Moves all extremities in full range of motion. NEUROLOGICAL: Alert and oriented x3. Normal speech. Cranial nerves II through XII grossly intact. PSYCH: Normal affect, normal mood. SKIN: Warm, dry, normal turgor. No rashes or lesions noted. Course - Re-evaluation Re-evalutation: Patient does not have overt CVA tenderness on exam, her abdomen is soft and benign, her vital signs are normal, she is alert and well-appearing. However based on her reported symptoms along with her flank pain I recommended laboratory work-up. Patient agrees to urinalysis but no other work-up. Urinalysis shows trace leukocyte esterase, few white blood cells, 1+ bacteria, however a lot of squamous epithelials. I do not suspect pyelonephritis based on this. I discussed with patient. Because of her lower abdominal pain with radiation is to the back and recommended a transvaginal ultrasound, blood work. Patient declines, she states that she has no current symptoms, she wants to be treated for her urinary symptoms and to follow-up with primary care. She has had an appendectomy. I do have a very low suspicion of acute abdomen. She does state that she will return if she worsens, I did discuss details and return precautions. Patient states appreciation and agreement. Stable and asymptomatic at time of discharge. - Vital Signs Vital signs: Temp Pulse Resp BP Pulse Ox 98.2 F 66 16 116/62 100 11/07/19 03:55 11/07/19 03:55 11/07/19 03:55 11/07/19 03:55 11/07/19 03:55 - Laboratory Laboratory results interpreted by me: 11/07/19 03:15 Ur Leukocyte Esterase TRACE H Discharge - Discharge Clinical Impression: Lower abdominal pain, Flank pain Condition: Stable Disposition: HOME, SELF-CARE Additional Instructions: Your evaluation is reassuring. The exact cause of your symptoms is uncertain at this time but because of your urinary tract symptoms we are covering you with an antibiotic. We have a urine culture pending. Symptoms most likely will simply resolve. Take Zofran if needed for nausea, take the antibiotics as prescribed, drink plenty of fluids, rest. Follow-up with primary care. Return if you worsen including vomiting, spiking fever, returned or severe worsening abdominal or flank pain, or any other concerning symptoms. Prescriptions: Cephalexin Monohydrate [Keflex 500 mg Capsule] 500 mg PO BID 5 Days #10 capsule Ondansetron [Zofran Odt 4 mg Tablet] 1 - 2 tab PO Q4H PRN #15 tab.rapdis PRN Reason: For Nausea/Vomiting Forms: Return to School
[2019-11-07 03:39] LABS: APPEARANCE,URINE CLOUDY; BILIRUBIN,URINE NEGATIVE (NEGATIVE); COLOR,URINE YELLOW; GLUCOSE, URINE NEGATIVE (NEGATIVE); KETONES,URINE NEGATIVE (NEGATIVE); LEUKOCYTE ESTERASE,URINE TRACE (NEGATIVE); NITRITE,URINE NEGATIVE (NEGATIVE); PROTEIN,URINE NEGATIVE (NEGATIVE); URINE SPECIFIC GRAVITY 1.026; UROBILINOGEN,URINE NEGATIVE mg/dL (<2.0)
[2019-11-07] MEDS ORDERED: CEPHALEXIN 500 MG CAPSULE PO ONE (03:53)
[2019-11-07] MEDS ORDERED: ONDANSETRON ODT 4 MG TAB (6 TAB/ER DISP) PO PRN (03:53)
[2019-11-07 03:55] VITALS: BP 116/62
== END 2019-11-07 04:36 | disposition home or self-care (01) ==
LOC: ER 02:29
DX: R10.30 Lower abdominal pain, unspecified (principal); R11.0 Nausea; F17.200 Nicotine dependence, unspecified, uncomplicated
CPT/HCPCS: 81001; 81025; 99284